=== PATIENT | male | born 1990 | race Hispanic/Latino ===

== ENCOUNTER 2019-04-01 02:02 | Emergency (ER) | payer OTHER ==
[2019-04-01] MEDS ORDERED: LIDOCAINE 5% TOPICAL PATCH TP ONE (02:49)
[2019-04-01] MEDS ORDERED: DIAZEPAM 5 MG TABLET ONE (02:50)
== END 2019-04-01 03:11 | disposition home or self-care (01) ==
LOC: EDH 02:02
DX: F41.1 Generalized anxiety disorder (principal); F43.21 Adjustment disorder with depressed mood; M54.6 Pain in thoracic spine; R51 Headache; M62.838 Other muscle spasm

== ENCOUNTER 2019-04-02 00:16 | Emergency (ER) | payer OTHER ==
[2019-04-02] MEDS ORDERED: HYDROXYZINE HCL 25 MG TABLET ONE (00:44)
== END 2019-04-02 01:01 | disposition home or self-care (01) ==
LOC: EDH 00:16
DX: F43.22 Adjustment disorder with anxiety (principal); R06.02 Shortness of breath; R13.10 Dysphagia, unspecified

== ENCOUNTER 2019-04-03 14:24 | Inpatient (IN) | payer OTHER ==
[2019-04-03] MEDS ORDERED: KETOROLAC TROMETHAMINE 30MG/ML ONE (15:13)
[2019-04-03] MEDS ORDERED: LORAZEPAM 2 MG/ML 1 ML VIAL ONE ×5 (15:15→23:43)
[2019-04-03 15:43] LABS: BASOPHILS % (AUTO) 0.8 % (0.0-5.0); EOSINOPHILS % (AUTO) 0.4 % (0.0-8.0); HEMATOCRIT 45.3 % (42-54); LYMPHOCYTES % (AUTO) 34.9 % (21.0-51.0); MEAN CORPUSCULAR HEMOGLOBIN 25.4 pg (27.0-33.0); MEAN CORPUSCULAR HGB CONC 32.5 g/dL (32.0-36.0); MEAN CORPUSCULAR VOLUME 78.1 fL (79-99); MONOCYTES % (AUTO) 10.3 % (3.0-13.0); NEUTROPHILS % (AUTO) 53.6 % (40.0-77.0); NUCLEATED RED BLOOD CELLS 0.1 % (0.0-0.19); PLATELET COUNT (AUTO) 350 K/uL (130-400); RED CELL DISTRIBUTION WIDTH 14.7 % (11.0-15.5); WHITE BLOOD COUNT (AUTO) 10.2 K/uL (4.8-10.8)
[2019-04-03 15:54] LABS: CREATININE 1.1 mg/dL (0.5-1.5); POTASSIUM 3.4 mmol/L (3.5-5.1)
[2019-04-03 15:56] LABS: INR 1.1 (0.85-1.15); PARTIAL THROMBOPLASTIN TIME 28.1 SEC (26.3-35.5); PROTHROMBIN TIME 11.5 SEC (9.6-11.6)
[2019-04-03 16:05] LABS: ALBUMIN 4.6 g/dL (3.5-5.0); BILIRUBIN,TOTAL 0.7 mg/dL (0.2-1.0); TOTAL PROTEIN, SERUM 8.6 g/dL (6.0-8.3); TROPONIN I 0.06 ng/mL (0.00-0.06)
[2019-04-03 17:02] LABS: APPEARANCE,URINE CLOUDY (CLEAR); BILIRUBIN,URINE MODERATE (NEGATIVE); COLOR,URINE YELLOW (YELLOW); GLUCOSE, URINE (UA) NEGATIVE (NEGATIVE); KETONES,URINE 40 mg/dL (NEGATIVE); LEUKOCYTE ESTERASE ,URINE NEGATIVE (NEGATIVE); NITRATE,URINE NEGATIVE (NEGATIVE); OCCULT BLOOD,URINE TRACE-LYSED (NEGATIVE); PROTEIN,URINE 30 mg/dL (NEGATIVE)
[2019-04-03] MEDS ORDERED: HALOPERIDOL LACTATE 5 MG/ML VIAL ONE ×2 (17:31→18:21)
[2019-04-03] MEDS ORDERED: LIDOCAINE HCL 2% 20ML ONE (17:42)
[2019-04-03 17:48] LABS: BACTERIA,URINE Rare /HPF (None Seen); RBC,URINE None Seen /HPF (0-1)
[2019-04-03 17:49] LABS: AMORPHOUS SEDIMENT,UR Few /LPF (None Seen); MUCUS,URINE Few LPF (None Seen); SQUAMOUS EPITHELIAL CELL,UR None Seen /HPF (0-2)
[2019-04-03 19:00] LABS: GLUCOSE, CSF 65 mg/dL (40-70); TOTAL PROTEIN, CSF 68 mg/dL (15-45)
[2019-04-03 19:17] LABS: APPEARANCE2,CSF CLEAR (CLEAR); COLOR2,CSF COLORLESS (COLORLESS); CSF 2ND TUBE NUMBER 4
[2019-04-03 19:37] LABS: APPEARANCE,CSF HAZY (CLEAR); COLOR,CSF PINK (COLORLESS); CSF TOTAL VOLUME 8.5 mL; CSF TUBE NUMBER 1; WHITE BLOOD CELL1,CSF 3 CMM (0-5)
[2019-04-03 19:38] LABS: RED BLOOD CELL1,CSF 5250 CMM (0-0)
[2019-04-03 21:14] LABS: AMPHET/METH SCREEN,URINE NEGATIVE (NEGATIVE); BARBITURATE SCREEN, URINE NEGATIVE (NEGATIVE); BENZODIAZEPINES SCREEN,URINE POSITIVE (NEGATIVE); CANNABINOID SCREEN,URINE NEGATIVE (NEGATIVE); COCAINE SCREEN,URINE NEGATIVE (NEGATIVE); OPIATE SCREEN,URINE NEGATIVE (NEGATIVE); PHENCYCLIDINE SCREEN,URINE NEGATIVE (NEGATIVE)
[2019-04-03] MEDS ORDERED: CEFTRIAXONE SODIUM 1 GM ONE (21:54)
[2019-04-03] MEDS: SODIUM CHLORIDE 0.9% 1000ML 1,000 ML IV SCH (22:07)
[2019-04-03] MEDS ORDERED: LORAZEPAM 2 MG/ML 1 ML VIAL IVP PRN (22:15)
[2019-04-03] MEDS ORDERED: POTASSIUM CHLORIDE 20MEQ/100ML 100 ML IV PRN (23:45)
[2019-04-03] MEDS ORDERED: LIDOCAINE HCL-MPF 1% 2ML VIAL IVP PRN (23:45)
[2019-04-03] MEDS ORDERED: POTASSIUM CHLORIDE 10% ELIXIR 20 MEQ/15 ML UDCUP PO PRN (23:45)
[2019-04-03] MEDS ORDERED: POTASSIUM CHLORIDE 20 MEQ ERTAB PO PRN (23:45)
[2019-04-04] MEDS ORDERED: OLANZAPINE 10MG/ML 1ML VIAL IM ONE (00:08)
[2019-04-04] MEDS ORDERED: OLANZAPINE 10MG/ML 1ML VIAL IM PRN (03:15)
[2019-04-04 04:00] VITALS: BP 112/56
[2019-04-04 08:00] VITALS: BP 137/74
[2019-04-04] MEDS: SODIUM CHLORIDE 0.9% 1000ML 1,000 ML IV SCH ×2 (08:07→18:07)
[2019-04-04] MEDS: FAMOTIDINE 20MG TAB 20 MG TAB PO SCH ×2 (08:24→21:00)
[2019-04-04 08:48] LABS: HEMATOCRIT 39.6 % (42-54); MEAN CORPUSCULAR HEMOGLOBIN 26.6 pg (27.0-33.0); MEAN CORPUSCULAR HGB CONC 33.8 g/dL (32.0-36.0); MEAN CORPUSCULAR VOLUME 78.7 fL (79-99); NUCLEATED RED BLOOD CELLS 0.1 % (0.0-0.19); PLATELET COUNT (AUTO) 244 K/uL (130-400); RED BLOOD CELL COUNT(AUTO) 5.03 MIL/uL (4.50-6.20); RED CELL DISTRIBUTION WIDTH 14.5 % (11.0-15.5); WHITE BLOOD COUNT (AUTO) 7.6 K/uL (4.8-10.8)
[2019-04-04 09:05] LABS: ALBUMIN 3.7 g/dL (3.5-5.0); BILIRUBIN,TOTAL 0.7 mg/dL (0.2-1.0); CREATININE 1.1 mg/dL (0.5-1.5); POTASSIUM 3.5 mmol/L (3.5-5.1)
--- NOTE | 2019-04-04 11:25 | NUR ---
DCP CM met with pt discussed dc plans. Pt is independent prior to admission, lives at home with spouse. Denies any equipments/services. Pt feels safe to go back home, still works and drives, spouse able to assist with transportation and needs as necessary. DC plan to home once stable. CM to cont to follow up. Addendum: 04/04/19 at 1128 by MARIYA REYES LVN CM Amended: Links added.
[2019-04-04 12:00] VITALS: BP 141/79
[2019-04-04] MEDS: POTASSIUM CHLORIDE 20 MEQ in DEXTROSE 5%-WATER 1,000 ML IV SCH (14:40)
[2019-04-04 16:00] VITALS: BP 143/81
--- NOTE | 2019-04-04 19:30 | NUR ---
CONSULT DR. THORNE TO SEE AND EXAMEN PATIENT WITH ORDERS
[2019-04-04 20:00] VITALS: BP 122/63
[2019-04-04] MEDS ORDERED: CEFTRIAXONE SODIUM 1 GM IVP SCH (21:00)
[2019-04-05] VITALS: BP 122/63
[2019-04-05 04:00] VITALS: BP 124/66
[2019-04-05] MEDS: SODIUM CHLORIDE 0.9% 1000ML 1,000 ML IV SCH (04:07)
[2019-04-05] MEDS: POTASSIUM CHLORIDE 20 MEQ in DEXTROSE 5%-WATER 1,000 ML IV SCH (04:47)
--- NOTE | 2019-04-05 05:00 | NUR ---
US US ABDOMEN DONE ORDERED, TOLERATED WELL
[2019-04-05 05:44] LABS: HEMATOCRIT 36.8 % (42-54); MEAN CORPUSCULAR HGB CONC 33.5 g/dL (32.0-36.0); MEAN CORPUSCULAR VOLUME 77.7 fL (79-99); PLATELET COUNT (AUTO) 273 K/uL (130-400); RED BLOOD CELL COUNT(AUTO) 4.74 MIL/uL (4.50-6.20); RED CELL DISTRIBUTION WIDTH 14.6 % (11.0-15.5); WHITE BLOOD COUNT (AUTO) 7.2 K/uL (4.8-10.8)
[2019-04-05 06:04] LABS: ALBUMIN 3.5 g/dL (3.5-5.0); BILIRUBIN,TOTAL 0.5 mg/dL (0.2-1.0); CREATININE 0.8 mg/dL (0.5-1.5); MAGNESIUM 1.8 mg/dL (1.80-2.40); PHOSPHORUS 3.2 mg/dL (2.5-4.9); POTASSIUM 3.1 mmol/L (3.5-5.1); T4 (THYROXINE) 7.2 ug/dL (4.7-13.3); TOTAL PROTEIN, SERUM 6.8 g/dL (6.0-8.3)
[2019-04-05 06:24] LABS: THYROID STIMULATING HORMONE 2.1 uIU/mL (0.36-3.74)
[2019-04-05 07:00] VITALS: BP 128/78
[2019-04-05 11:00] VITALS: BP 122/75
[2019-04-05] MEDS ORDERED: POTASSIUM CHLORIDE 20 MEQ ERTAB PO SCH (12:15)
[2019-04-05] MEDS: FAMOTIDINE 20MG TAB 20 MG TAB PO SCH (13:26)
[2019-04-05 16:00] VITALS: BP 124/70
--- NOTE | 2019-04-05 17:37 | NUR ---
OMAIRA GONZALEZ PT [facility] FROM [facility] LOC[facility], WILL FOLLOW UP WITH PATIENT ONCE AT HOME. MD INFORMED PATIENT DC HOME TO THE CARE OF SPOUSE AND FAMILY IV CATHETERS REMOVED, INTACT. DC INSTRUCTION PROVIDED USING TEACH BACK
== END 2019-04-05 18:19 | disposition home or self-care (01) | DRG 641 ==
LOC: EEVIPCON 14:24 → EDH 14:24 → OBSVTOIN 22:07 → EDHIP 22:07 → 4BH 23:10
PROVIDERS: ADMIT Internal Medicine; ATTEND Internal Medicine
PROC: 009U3ZX Drainage of Spinal Canal, Percutaneous Approach, Diagnostic (ICD-10-PCS; principal; 2019-04-03)
DX: E87.0 Hyperosmolality and hypernatremia (principal); F41.0 Panic disorder [episodic paroxysmal anxiety]; E87.6 Hypokalemia; E86.0 Dehydration; R74.0 Nonspecific elevation of levels of transaminase and lactic acid dehydrogenase [LDH]
CPT/HCPCS: 36415; 70450; 71045; 76705; 80053; 80305; 81001; 82140; 82550; 82945; 83605; 83735; 83874; 84100; 84132; 84157; 84436; 84443; 84480; 84484; 85025; 85027; 85610; 85651; 85730; 86140; 86694; 86735; 86765; 86787; 86788; 87040; 87071; 87088; 87147; 87205; 87252; 87804; 89051; 93005; 99291; A4218; G0378; J0696; J1630; J1885; J2060; J3480; J3490; J7070

== ENCOUNTER → 2019-04-09 | Outpatient (CLI) | payer OTHER ==
[2019-04-09 11:14] LABS: ALBUMIN 4.4 g/dL (3.5-5.0); BILIRUBIN,DIRECT 0.1 mg/dL (0.0-0.3); BILIRUBIN,TOTAL 0.4 mg/dL (0.2-1.0); POTASSIUM 4.1 mmol/L (3.5-5.1); TOTAL PROTEIN, SERUM 8.3 g/dL (6.0-8.3)
[2019-04-10 07:19] LABS: HEPATITIS A ANTIBODY IGM Negative (Negative); HEPATITIS B CORE IGM Negative (Negative); HEPATITIS Bs ANTIGEN SCREEN P Negative (Negative)
== END | disposition home or self-care (01) ==
LOC: LAB 10:01
PROVIDERS: ATTEND Physician Assistant
DX: E78.5 Hyperlipidemia, unspecified (principal); I10 Essential (primary) hypertension; R94.5 Abnormal results of liver function studies
CPT/HCPCS: 36415; 80074; 80076; 84132; 84295

== ENCOUNTER 2019-08-08 06:06 | Day surgery (SDC) | payer OTHER ==
[2019-08-07 15:20] VITALS: BP 128/66
[2019-08-07 17:45] LABS: BASOPHILS % (AUTO) 0.9 % (0.0-5.0); EOSINOPHILS % (AUTO) 2.8 % (0.0-8.0); HEMATOCRIT 46.3 % (42-54); LYMPHOCYTES % (AUTO) 41.6 % (21.0-51.0); MEAN CORPUSCULAR HEMOGLOBIN 26.6 pg (27.0-33.0); MEAN CORPUSCULAR HGB CONC 33.5 g/dL (32.0-36.0); MEAN CORPUSCULAR VOLUME 79.4 fL (79-99); MONOCYTES % (AUTO) 6.2 % (3.0-13.0); NEUTROPHILS % (AUTO) 48.5 % (40.0-77.0); PLATELET COUNT (AUTO) 320 K/uL (130-400); RED BLOOD CELL COUNT(AUTO) 5.83 MIL/uL (4.50-6.20); RED CELL DISTRIBUTION WIDTH 14.6 % (11.0-15.5); WHITE BLOOD COUNT (AUTO) 9.1 K/uL (4.8-10.8)
[2019-08-07 17:59] LABS: POTASSIUM 4.4 mmol/L (3.5-5.1)
[~2019-08-08] VITALS: Ht 180.3 cm; Wt 97.3 kg
[2019-08-08] VITALS (17 sets, daily range): BP systolic 100–129; BP diastolic 52–75
[2019-08-08] MEDS ORDERED: CEFAZOLIN SODIUM 1 GM VIAL ONE (06:51)
[2019-08-08] MEDS ORDERED: LACTATED RINGERS 1000ML 1,000 ML IV ONE (06:51)
[2019-08-08] MEDS ORDERED: MIDAZOLAM HCL 1 MG/ML 2ML VIAL ONE (07:07)
[2019-08-08] MEDS ORDERED: LIDOCAINE PF 2% 5ML ABBOJECT ONE (07:07)
[2019-08-08] MEDS ORDERED: FENTANYL CITRATE PF 50 MCG/1 ML 2ML VIAL ONE ×2 (07:07→10:23)
[2019-08-08] MEDS ORDERED: PROPOFOL 10 MG/ML 20ML VIAL IV ONE (07:07)
[2019-08-08] MEDS ORDERED: ONDANSETRON HCL 4 MG/2 ML VIAL ONE (07:08)
[2019-08-08] MEDS ORDERED: DEXAMETHASONE SOD PHOSPHATE 10MG/ML 1ML VIAL ONE (07:08)
[2019-08-08] MEDS: CEFAZOLIN SODIUM 1 GM VIAL IVP ONE ×2 (07:14→09:55)
[2019-08-08] MEDS ORDERED: LACTATED RINGERS 1000ML 1,000 ML IV SCH (08:30)
[2019-08-08] MEDS ORDERED: GLYCOPYRROLATE 1 MG/5 ML SYRINGE ONE ×2 (09:54→12:06)
[2019-08-08] MEDS ORDERED: ROCURONIUM 10MG/1ML SYR 10 MG/ML ML ONE (09:54)
[2019-08-08] MEDS ORDERED: ATROPINE SULFATE 0.1 MG/ML 10 ML SYG IVP ONE (10:12)
[2019-08-08] MEDS ORDERED: MEPERIDINE-PF 25 MG/ML SYG ONE ×2 (10:54→12:06)
[2019-08-08] MEDS ORDERED: NEOSTIGMINE 5MG/5ML SYR IV ONE (11:03)
[2019-08-08] MEDS ORDERED: KETOROLAC TROMETHAMINE 30MG/ML ONE (11:53)
--- NOTE | 2019-08-08 12:30 | NUR ---
PATIENT ARRIVED PATIENT BROUGHT TO DAY PATIENT ROOM 2 BY TAO DOWNING. PATIENT AAOX3, RESPIRATIONS UNLABORED, VITAL SIGNS STABLE, DENIES ANY PAIN. DRESSING (JOSUE WRAP) TO RIGHT HAND WITH SPLINT IN PLACE TO RIGHT 5TH DIGIT. CAPILLARY REFILL <3SECS TO RIGHT FINGER TIPS. ABLE TO MOVE FINGERS TO RIGHT HAND AND DENIES ANY NUMBNESS TO RIGHT FINGERS. DRESSING TO RIGHT HAND IS DRY AND INTACT. SIDERAILS UP X2, BED IN LOWEST POSITION AND CALL PARKER IN REACH.
--- NOTE | 2019-08-08 13:15 | NUR ---
DISCHARGE INSTRUCTIONS DISCHARGE INSTRUCTIONS PROVIDED TO PATIENT'S SPOUSE. HANDOUTS PROVIDED AND SPOUSE INSTRUCTED TO CALL DR DEGROOT'S OFFICE FOR FOLLOW UP APPOINTMENT IN 10 DAYS. INSTRUCTED SPOUSE TO KEEP DRESSING DRY AND DO NOT REMOVE UNTIL SEEN BY DR DEGROOT IN OFFICE. INSTRUCTED TO REMOVED JOSUE WRAP IF IT GETS WET AND GO TO DR DEGROOT'S OFFICE FOR A NEW ONE. PATIENT'S SPOUSE VERBALIZED UNDERSTANDING. ALL QUESTIONS/CONCERNS ADDRESSED.
--- NOTE | 2019-08-08 13:25 | NUR ---
DISCHARGED PATIENT DISCHARGED FROM FACILITY VIA WHEELCHAIR BY NURSE (TAO CHAUDHRY). PATIENT TAKEN TO PRIVATE VEHICLE BEING DRIVEN BY SPOUSE.
== END 2019-08-08 13:25 | disposition home or self-care (01) ==
LOC: DAH 06:06
PROVIDERS: ATTEND Orthopaedic Surgery
DX: S62.616A Displaced fracture of proximal phalanx of right little finger, initial encounter for closed fracture (principal); F41.9 Anxiety disorder, unspecified; F32.9 Major depressive disorder, single episode, unspecified; Z80.3 Family history of malignant neoplasm of breast; Z83.3 Family history of diabetes mellitus; W19.XXXA Unspecified fall, initial encounter; Y93.89 Activity, other specified; Y92.89 Other specified places as the place of occurrence of the external cause; Y99.8 Other external cause status
CPT/HCPCS: 26735; 36415; 73130; 80048; 85025; A4215; A4221; A4222; A4223; A4606; A4649 ×2; A6223; A6260; A6446; C1713 ×2; J0461; J0690; J1100; J1885; J2001; J2175 ×2; J2250; J2405; J2704; J2710; J3010 ×2; J3490 ×2; J7120

== ENCOUNTER → 2020-03-31 | Outpatient (CLI) | payer OTHER ==
[2020-03-31 11:57] LABS: BASOPHILS % (AUTO) 0.9 % (0.0-5.0); EOSINOPHILS % (AUTO) 3.2 % (0.0-8.0); HEMATOCRIT 47.5 % (42-54); LYMPHOCYTES % (AUTO) 44.5 % (21.0-51.0); MEAN CORPUSCULAR HEMOGLOBIN 26.1 pg (27.0-33.0); MEAN CORPUSCULAR HGB CONC 32.2 g/dL (32.0-36.0); MEAN CORPUSCULAR VOLUME 81.1 fL (79-99); MONOCYTES % (AUTO) 6.8 % (3.0-13.0); NEUTROPHILS % (AUTO) 43.9 % (40.0-77.0); PLATELET COUNT (AUTO) 281 K/uL (130-400); RED BLOOD CELL COUNT(AUTO) 5.86 MIL/uL (4.50-6.20); RED CELL DISTRIBUTION WIDTH 13.6 % (11.0-15.5); WHITE BLOOD COUNT (AUTO) 7.5 K/uL (4.8-10.8)
[2020-03-31 12:51] LABS: ALBUMIN 4.5 g/dL (3.5-5.0); BILIRUBIN,DIRECT 0.1 mg/dL (0.0-0.3); BILIRUBIN,TOTAL 0.4 mg/dL (0.2-1.0); POTASSIUM 4.3 mmol/L (3.5-5.1); T4 (THYROXINE) 8.2 ug/dL (4.7-13.3); THYROID STIMULATING HORMONE 1.62 uIU/mL (0.36-3.74); TOTAL PROTEIN, SERUM 8.5 g/dL (6.0-8.3)
== END | disposition home or self-care (01) ==
LOC: LAB 10:57
PROVIDERS: ATTEND Psychiatry & Neurology Psychiatry
DX: F33.1 Major depressive disorder, recurrent, moderate (principal); F41.1 Generalized anxiety disorder; F06.31 Mood disorder due to known physiological condition with depressive features
CPT/HCPCS: 36415; 80053; 80076; 82306; 82607; 82746; 83540; 84436; 84443; 84481; 85025

== ENCOUNTER → 2021-08-25 | Outpatient (CLI) | payer OTHER ==
[2021-08-25 11:18] LABS: BASOPHILS % (AUTO) 1.2 % (0.0-5.0); EOSINOPHILS % (AUTO) 2.7 % (0.0-8.0); HEMATOCRIT 47.1 % (42-54); LYMPHOCYTES % (AUTO) 51.9 % (21.0-51.0); MEAN CORPUSCULAR HEMOGLOBIN 26.2 pg (27.0-33.0); MEAN CORPUSCULAR HGB CONC 31.6 g/dL (32.0-36.0); MEAN CORPUSCULAR VOLUME 82.8 fL (79-99); MONOCYTES % (AUTO) 6.5 % (3.0-13.0); NEUTROPHILS % (AUTO) 37.3 % (40.0-77.0); PLATELET COUNT (AUTO) 267 K/uL (130-400); RED BLOOD CELL COUNT(AUTO) 5.69 MIL/uL (4.50-6.20); RED CELL DISTRIBUTION WIDTH 13.7 % (11.0-15.5); WHITE BLOOD COUNT (AUTO) 6.9 K/uL (4.8-10.8)
[2021-08-25 12:26] LABS: ALBUMIN 4.3 g/dL (3.5-5.0); BILIRUBIN,TOTAL 0.4 mg/dL (0.2-1.0); CREATININE 0.8 mg/dL (0.5-1.5); POTASSIUM 4.7 mmol/L (3.5-5.1); THYROID STIMULATING HORMONE 1.47 uIU/mL (0.36-3.74); TOTAL PROTEIN, SERUM 8.1 g/dL (6.0-8.3)
== END | disposition home or self-care (01) ==
LOC: LAB 10:06
PROVIDERS: ATTEND Family Medicine
DX: F41.1 Generalized anxiety disorder (principal)
CPT/HCPCS: 36415; 80053; 80061; 84439; 84443; 85025

== ENCOUNTER 2022-01-06 10:26 | Emergency (ER) | payer OTHER ==
[~2022-01-06] VITALS: Ht 180.3 cm; Wt 106.1 kg
[2022-01-06 10:52] LABS: BILIRUBIN,URINE Negative (NEGATIVE); COLOR,URINE Yellow (YELLOW); GLUCOSE, URINE (UA) Negative (NEGATIVE); KETONES,URINE Trace mg/dL (NEGATIVE); LEUKOCYTE ESTERASE ,URINE Negative (NEGATIVE); NITRATE,URINE Negative (NEGATIVE); OCCULT BLOOD,URINE Negative (NEGATIVE); PROTEIN,URINE Trace mg/dL (NEGATIVE)
[2022-01-06 10:54] LABS: BASOPHILS % (AUTO) 0.5 % (0.0-5.0); EOSINOPHILS % (AUTO) 0.2 % (0.0-8.0); HEMATOCRIT 47.5 % (42-54); MEAN CORPUSCULAR HEMOGLOBIN 25.9 pg (27.0-33.0); MEAN CORPUSCULAR HGB CONC 32.2 g/dL (32.0-36.0); MEAN CORPUSCULAR VOLUME 80.4 fL (79-99); MONOCYTES % (AUTO) 7.1 % (3.0-13.0); NEUTROPHILS % (AUTO) 81.9 % (40.0-77.0); PLATELET COUNT (AUTO) 233 K/uL (130-400); RED BLOOD CELL COUNT(AUTO) 5.91 MIL/uL (4.50-6.20); RED CELL DISTRIBUTION WIDTH 12.9 % (11.0-15.5); WHITE BLOOD COUNT (AUTO) 5.9 K/uL (4.8-10.8)
[2022-01-06 10:54] LABS: APPEARANCE,URINE CLEAR (CLEAR)
[2022-01-06 10:58] LABS: BACTERIA,URINE Rare /HPF (None Seen); MUCUS,URINE Few LPF (None Seen); RBC,URINE 0-1 /HPF (0-1); SQUAMOUS EPITHELIAL CELL,UR Rare /HPF (0-2); WBC,URINE 0-1 /HPF (0-1)
[2022-01-06 11:04] LABS: CARBON DIOXIDE 28 mmol/L (21-32); CHLORIDE 99 mmol/L (101-111); GLOMERULAR FILTR. RATE CALC 91 mL/min (>60); GLUCOSE,RANDOM 96 mg/dL (70-105); POTASSIUM 3.3 mmol/L (3.5-5.1); SODIUM SERUM 137 mmol/L (136-145); UREA NITROGEN, BLOOD 17 mg/dL (7-18)
[2022-01-06 11:08] LABS: ALANINE AMINOTRANSFERASE 56 U/L (12-78); ALBUMIN 4.5 g/dL (3.5-5.0); AMYLASE 27 U/L (25-115); ASPARTATE AMINOTRANSFERASE 22 U/L (10-37); BILIRUBIN,TOTAL 0.7 mg/dL (0.2-1.0); CREATINE KINASE, TOTAL 56 U/L (21-232); TOTAL PROTEIN, SERUM 8.5 g/dL (6.0-8.3)
[2022-01-06 11:09] LABS: LIPASE < 50 U/L (114-286)
[2022-01-06] MEDS ORDERED: IOHEXOL 350 MG/ML 100ML INFUS..BTL IV ONE (11:43)
[2022-01-06] MEDS ORDERED: FAMO20TA8 PO (12:57)
[2022-01-06] MEDS ORDERED: MAG/ALUM/SIMETH 30 ML UDCUP PO ONE (13:00)
[2022-01-06] MEDS ORDERED: DICYCLOMINE HCL 10 MG/5 ML ML PO ONE ×2 (13:00→13:04)
[2022-01-06] MEDS ORDERED: LIDOCAINE HCL 2% VISCOUS 15 ML UDCUP PO ONE (13:00)
[2022-01-06] MEDS ORDERED: LIDOCAINE HCL 2% VISCOUS 15 ML UDCUP ONE (13:04)
[2022-01-06] MEDS ORDERED: MAG/ALUM/SIMETH 30 ML UDCUP ONE (13:04)
[2022-01-06] MEDS ORDERED: POTASSIUM BICARB/CIT AC 25 MEQ TABLET.EFF ONE (13:04)
[2022-01-06 13:11] VITALS: BP 127/75
[2022-01-06] MEDS ORDERED: POTASSIUM BICARB/CIT AC 25 MEQ TABLET.EFF PO ONE (13:30)
[2022-01-06] MEDS ORDERED: ONDA4TAB10 PO (23:58)
== END 2022-01-06 13:53 | disposition home or self-care (01) ==
LOC: EDH 10:26
DX: K80.50 Calculus of bile duct without cholangitis or cholecystitis without obstruction (principal); K21.9 Gastro-esophageal reflux disease without esophagitis; R11.2 Nausea with vomiting, unspecified
CPT/HCPCS: 36415; 74177; 80053; 81001; 82150; 82550; 83690; 85025; 99285; Q9967

== ENCOUNTER 2022-01-06 20:32 | Emergency (ER) | payer OTHER ==
[~2022-01-06] VITALS: Ht 180.3 cm; Wt 106.1 kg
[~2022-01-06 20:32] MED LIST: FAMO20TA8 PO
[2022-01-06 20:45] VITALS: BP 125/74
[2022-01-06 21:50] LABS: BASOPHILS % (AUTO) 0.2 % (0.0-5.0); HEMATOCRIT 45.5 % (42-54); LYMPHOCYTES % (AUTO) 17.5 % (21.0-51.0); MEAN CORPUSCULAR HEMOGLOBIN 25.2 pg (27.0-33.0); MEAN CORPUSCULAR HGB CONC 31.9 g/dL (32.0-36.0); NEUTROPHILS % (AUTO) 70.1 % (40.0-77.0); PLATELET COUNT (AUTO) 230 K/uL (130-400); RED BLOOD CELL COUNT(AUTO) 5.76 MIL/uL (4.50-6.20); RED CELL DISTRIBUTION WIDTH 13.2 % (11.0-15.5); WHITE BLOOD COUNT (AUTO) 4.6 K/uL (4.8-10.8)
[2022-01-06 22:00] LABS: CREATININE 0.9 mg/dL (0.5-1.5); POTASSIUM 3.6 mmol/L (3.5-5.1)
[2022-01-06 22:12] LABS: AMPHET/METH SCREEN,URINE NEGATIVE (NEGATIVE); BARBITURATE SCREEN, URINE NEGATIVE (NEGATIVE); BENZODIAZEPINES SCREEN,URINE NEGATIVE (NEGATIVE); CANNABINOID SCREEN,URINE NEGATIVE (NEGATIVE); COCAINE SCREEN,URINE NEGATIVE (NEGATIVE); OPIATE SCREEN,URINE NEGATIVE (NEGATIVE); PHENCYCLIDINE SCREEN,URINE NEGATIVE (NEGATIVE)
[2022-01-06] MEDS ORDERED: FAMOTIDINE 20MG VIAL IV ONE (22:30)
[2022-01-06] MEDS ORDERED: ONDANSETRON 4MG INJ IVP ONE (22:30)
[2022-01-06] MEDS ORDERED: KETOROLAC 15MG/ML VIAL (15MG/ML) IV ONE (22:30)
[2022-01-06] MEDS ORDERED: 0.9%NACL 1000ML 1,000 ML IV ONE (22:30)
[2022-01-06] MEDS ORDERED: ONDA4TAB10 PO (23:58)
== END 2022-01-07 00:16 | disposition home or self-care (01) ==
LOC: EDH 20:32
DX: K80.50 Calculus of bile duct without cholangitis or cholecystitis without obstruction (principal); R11.2 Nausea with vomiting, unspecified; R19.7 Diarrhea, unspecified; Z79.899 Other long term (current) drug therapy
CPT/HCPCS: 36415; 80048; 80305; 85025; 96361; 96374; 96375; 99284; J1885; J2405; J3490; J7030

== ENCOUNTER → 2022-03-31 | Outpatient (CLI) | payer OTHER ==
[~2022-03-31] MED LIST changes: +ONDA4TAB10 PO
== END | disposition home or self-care (01) ==
LOC: LAB 08:36
PROVIDERS: ATTEND Family Medicine
DX: Z20.9 Contact with and (suspected) exposure to unspecified communicable disease (principal)
CPT/HCPCS: 36415; 83013

== ENCOUNTER → 2022-06-22 | Outpatient (CLI) | payer OTHER | END | disposition home or self-care (01) | LOC: LAB 08:41 | PROVIDERS: ATTEND Psychiatry & Neurology Psychiatry | DX: K29.70 Gastritis, unspecified, without bleeding (principal); Z86.19 Personal history of other infectious and parasitic diseases | CPT/HCPCS: 36415; 83013 ==

== ENCOUNTER 2022-10-09 13:43 | Emergency (ER) | payer OTHER ==
[~2022-10-09] VITALS: Ht 180.3 cm; Wt 114.8 kg
[2022-10-09 14:09] LABS: EOSINOPHILS % (AUTO) 2.2 % (0.0-8.0); HEMATOCRIT 45.9 % (42-54); MEAN CORPUSCULAR HEMOGLOBIN 25.8 pg (27.0-33.0); MEAN CORPUSCULAR HGB CONC 32.9 g/dL (32.0-36.0); MEAN CORPUSCULAR VOLUME 78.5 fL (79-99); MONOCYTES % (AUTO) 8.4 % (3.0-13.0); NEUTROPHILS % (AUTO) 37.1 % (40.0-77.0); PLATELET COUNT (AUTO) 271 K/uL (130-400); RED BLOOD CELL COUNT(AUTO) 5.85 MIL/uL (4.50-6.20); RED CELL DISTRIBUTION WIDTH 13.5 % (11.0-15.5); WHITE BLOOD COUNT (AUTO) 9.4 K/uL (4.8-10.8)
[2022-10-09 14:17] LABS: CREATININE 1.3 mg/dL (0.5-1.5); POTASSIUM 3.3 mmol/L (3.5-5.1)
[2022-10-09 14:21] LABS: ALBUMIN 4.4 g/dL (3.5-5.0); TOTAL PROTEIN, SERUM 8.3 g/dL (6.0-8.3)
[2022-10-09 15:21] LABS: APPEARANCE,URINE CLEAR (CLEAR); BILIRUBIN,URINE NEGATIVE (NEGATIVE); COLOR,URINE LIGHT-YELLOW (YELLOW); GLUCOSE, URINE (UA) NEGATIVE (NEGATIVE); KETONES,URINE NEGATIVE (NEGATIVE); LEUKOCYTE ESTERASE ,URINE NEGATIVE Leu/uL (NEGATIVE); NITRATE,URINE NEGATIVE (NEGATIVE); OCCULT BLOOD,URINE NEGATIVE (NEGATIVE); PH,URINE 6.5 (5.0-8.0); PROTEIN,URINE NEGATIVE (NEGATIVE); UROBILINOGEN,URINE 0.2 mg/dL (0.2-1.0)
[2022-10-09 15:36] VITALS: BP 128/79
[2022-10-09 15:51] LABS: MUCUS,URINE RARE LPF (None Seen); RBC,URINE 0-1 /HPF (0-1); WBC,URINE 0-1 /HPF (0-1)
[2022-10-09] MEDS ORDERED: KCL 20 MEQ ERTAB PO ONE (16:00)
[2022-10-09] MEDS ORDERED: IBUP-1493 PO (16:07)
[2022-10-09] MEDS ORDERED: OMEP40CA21 PO (16:07)
== END 2022-10-09 16:26 | disposition home or self-care (01) ==
LOC: EDH 13:43
DX: K80.20 Calculus of gallbladder without cholecystitis without obstruction (principal)
CPT/HCPCS: 36415; 76705; 80053; 81001; 83690; 85025; 93005

== ENCOUNTER 2023-02-17 09:09 | Emergency (ER) | payer OTHER ==
[~2023-02-17] VITALS: Ht 180.3 cm; Wt 113.4 kg
[~2023-02-17 09:09] MED LIST changes: +IBUP-1493 PO; +OMEP40CA21 PO
[2023-02-17 09:10] VITALS: BP 133/72
[2023-02-17] MEDS ORDERED: PRED5TAB PO (09:25)
[2023-02-17] MEDS ORDERED: LORA10TA7 PO (09:25)
== END 2023-02-17 09:29 | disposition home or self-care (01) ==
LOC: EDH 09:09
DX: L25.9 Unspecified contact dermatitis, unspecified cause (principal); Z79.1 Long term (current) use of non-steroidal anti-inflammatories (NSAID); Z79.899 Other long term (current) drug therapy

== ENCOUNTER 2023-06-27 09:45 | Inpatient (IN) | payer OTHER ==
[~2023-06-27] VITALS: Ht 180.3 cm; Wt 97.5 kg
[~2023-06-27 09:45] MED LIST changes: +LORA10TA7 PO; +ONDA-104 PO; +PRED5TAB PO
[2023-06-27] MEDS ORDERED: PANTOPRAZOLE 40 MG/VIAL IVP ONE (12:00)
[2023-06-27] MEDS ORDERED: ONDANSETRON 4MG INJ IVP ONE (12:00)
[2023-06-27] MEDS ORDERED: LACTATED RINGERS 1000ML IV SCH (12:00)
[2023-06-27 12:45] LABS: POTASSIUM 3.8 mmol/L (3.5-5.1)
[2023-06-27 12:46] LABS: ALBUMIN 4.3 g/dL (3.5-5.0); BILIRUBIN,TOTAL 0.6 mg/dL (0.2-1.0); TOTAL PROTEIN, SERUM 7.9 g/dL (6.0-8.3)
[2023-06-27 12:57] LABS: BASOPHILS # (AUTO) 0.06 K/uL (0.00-0.20); EOSINOPHILS # (AUTO) 0.13 K/uL (0.00-0.70); EOSINOPHILS % (AUTO) 2.2 % (0.0-8.0); IMMATURE GRANULOCYTE ABSOLUTE 0.01 K/uL (0-1); LYMPHOCYTES # (AUTO) 2.8 K/uL (1.0-4.8); LYMPHOCYTES % (AUTO) 47.9 % (21.0-51.0); MEAN CORPUSCULAR HEMOGLOBIN 26.3 pg (27.0-33.0); MEAN CORPUSCULAR HGB CONC 32.5 g/dL (32.0-36.0); MONOCYTES # (AUTO) 0.4 K/uL (0.1-1.0); MONOCYTES % (AUTO) 6.6 % (3.0-13.0); NEUTROPHILS # (AUTO) 2.4 K/uL (1.8-7.7); NEUTROPHILS % (AUTO) 42.1 % (40.0-77.0); PLATELET COUNT (AUTO) 266 K/uL (130-400); RED BLOOD CELL COUNT(AUTO) 5.43 MIL/uL (4.50-6.20); RED CELL DISTRIBUTION WIDTH 13.6 % (11.0-15.5); WHITE BLOOD COUNT (AUTO) 5.8 K/uL (4.8-10.8)
[2023-06-27] MEDS ORDERED: MORPHINE 4 MG SYG IVP ONE (15:00)
[2023-06-27] MEDS ORDERED: GUAIFENESIN-DM 200/20 MG 10 ML PO PRN (18:00)
[2023-06-27] MEDS ORDERED: POTASSIUM CHLORIDE 20MEQ/100ML 100 ML IV PRN (18:00)
[2023-06-27] MEDS ORDERED: MAGNESIUM 2GM PREMIX 50ML 50 ML IV PRN (18:00)
[2023-06-27] MEDS ORDERED: DiphenhydrAMINE HCL 50 MG/ML VIAL IV PRN (18:00)
[2023-06-27] MEDS ORDERED: HYDROCODONE/ACETAMINOPHEN 5/325 MG TAB PO PRN (18:00)
[2023-06-27] MEDS ORDERED: NITROGLYCERIN 0.4 MG SL TAB SL PRN (18:00)
[2023-06-27] MEDS ORDERED: DIPHENHYDRAMINE HCL 25 MG CAPSULE PO PRN (18:00)
[2023-06-27] MEDS ORDERED: KCL 20 MEQ ERTAB PO PRN (18:00)
[2023-06-27] MEDS ORDERED: ACETAMINOPHEN 325 MG TAB PO PRN ×2 (18:00)
[2023-06-27] MEDS ORDERED: HYDROMORPHONE 1 MG INJ IV PRN (18:00)
[2023-06-27] MEDS ORDERED: POTASSIUM CHLORIDE 10% ELIXIR 20 MEQ/15 ML UDCUP PO PRN (18:00)
[2023-06-27] MEDS ORDERED: ONDANSETRON 4MG INJ IV PRN (18:00)
[2023-06-27] MEDS ORDERED: LACTULOSE 20 GM/30 ML UDCUP PO PRN (18:00)
[2023-06-27] MEDS: LACTATED RINGERS 1000ML 1,000 ML IV SCH (18:30)
[2023-06-27] MEDS ORDERED: FAMOTIDINE 20MG VIAL IV SCH (21:00)
[2023-06-27 21:03] LABS: SARS-CoV-2, RNA, NAAT NEGATIVE SARS CoV-2 (NEGATIVE)
[2023-06-27] MEDS: FAMOTIDINE 20MG TAB PO SCH (22:36)
[2023-06-27] MEDS: ZOSYN 3.375GM+NS 50ML 50 ML IVPB SCH (22:36)
[2023-06-27 23:45] VITALS: BP 130/60; PULSE 51; RESP 20; O2SAT 96
[2023-06-28] VITALS (7 sets, daily range): BP systolic 95–128; BP diastolic 50–62; PULSE 39–56; RESP 16–18; O2SAT 98–99
[2023-06-28] MEDS: LACTATED RINGERS 1000ML 1,000 ML IV SCH ×3 (00:58→17:24)
[2023-06-28] MEDS: ZOSYN 3.375GM+NS 50ML 50 ML IVPB SCH ×3 (04:12→19:14)
[2023-06-28 05:14] LABS: BASOPHILS # (AUTO) 0.06 K/uL (0.00-0.20); BASOPHILS % (AUTO) 0.9 % (0.0-5.0); EOSINOPHILS # (AUTO) 0.13 K/uL (0.00-0.70); EOSINOPHILS % (AUTO) 1.9 % (0.0-8.0); HEMATOCRIT 40.1 % (42-54); IMMATURE GRANULOCYTE ABSOLUTE 0.02 K/uL (0-1); LYMPHOCYTES # (AUTO) 2.7 K/uL (1.0-4.8); LYMPHOCYTES % (AUTO) 40.5 % (21.0-51.0); MEAN CORPUSCULAR HEMOGLOBIN 26.2 pg (27.0-33.0); MEAN CORPUSCULAR HGB CONC 32.2 g/dL (32.0-36.0); MEAN CORPUSCULAR VOLUME 81.5 fL (79-99); MONOCYTES # (AUTO) 0.6 K/uL (0.1-1.0); MONOCYTES % (AUTO) 9.1 % (3.0-13.0); NEUTROPHILS # (AUTO) 3.2 K/uL (1.8-7.7); NEUTROPHILS % (AUTO) 47.3 % (40.0-77.0); PLATELET COUNT (AUTO) 214 K/uL (130-400); RED BLOOD CELL COUNT(AUTO) 4.92 MIL/uL (4.50-6.20); RED CELL DISTRIBUTION WIDTH 13.7 % (11.0-15.5); WHITE BLOOD COUNT (AUTO) 6.7 K/uL (4.8-10.8)
[2023-06-28 05:31] LABS: ALBUMIN 3.5 g/dL (3.5-5.0); BILIRUBIN,TOTAL 1.3 mg/dL (0.2-1.0); CREATININE 1.2 mg/dL (0.5-1.5); PHOSPHORUS 3.8 mg/dL (2.5-4.9); POTASSIUM 3.7 mmol/L (3.5-5.1); TOTAL PROTEIN, SERUM 6.5 g/dL (6.0-8.3)
[2023-06-28 05:48] LABS: MAGNESIUM 1.9 mg/dL (1.80-2.40)
[2023-06-28] MEDS: ENOXAPARIN SODIUM 40 MG/0.4 ML SYRINGE SQ SCH (07:57)
[2023-06-28] MEDS: FAMOTIDINE 20MG TAB PO SCH ×2 (07:57→19:12)
[2023-06-29] VITALS (8 sets, daily range): BP systolic 100–128; BP diastolic 52–62; PULSE 46–67; RESP 17–20; O2SAT 96–99
[2023-06-29] MEDS: LACTATED RINGERS 1000ML 1,000 ML IV SCH ×3 (00:19→16:14)
[2023-06-29 04:02] LABS: BASOPHILS # (AUTO) 0.06 K/uL (0.00-0.20); BASOPHILS % (AUTO) 0.9 % (0.0-5.0); EOSINOPHILS # (AUTO) 0.16 K/uL (0.00-0.70); EOSINOPHILS % (AUTO) 2.4 % (0.0-8.0); HEMATOCRIT 38.9 % (42-54); IMMATURE GRANULOCYTE ABSOLUTE 0.01 K/uL (0-1); LYMPHOCYTES # (AUTO) 3.4 K/uL (1.0-4.8); LYMPHOCYTES % (AUTO) 49.3 % (21.0-51.0); MEAN CORPUSCULAR HEMOGLOBIN 26.3 pg (27.0-33.0); MEAN CORPUSCULAR HGB CONC 32.9 g/dL (32.0-36.0); MONOCYTES # (AUTO) 0.5 K/uL (0.1-1.0); MONOCYTES % (AUTO) 6.8 % (3.0-13.0); NEUTROPHILS # (AUTO) 2.8 K/uL (1.8-7.7); NEUTROPHILS % (AUTO) 40.5 % (40.0-77.0); PLATELET COUNT (AUTO) 242 K/uL (130-400); RED BLOOD CELL COUNT(AUTO) 4.86 MIL/uL (4.50-6.20); RED CELL DISTRIBUTION WIDTH 13.6 % (11.0-15.5); WHITE BLOOD COUNT (AUTO) 6.8 K/uL (4.8-10.8)
[2023-06-29 04:16] LABS: ALBUMIN 3.5 g/dL (3.5-5.0); BILIRUBIN,TOTAL 0.8 mg/dL (0.2-1.0); TOTAL PROTEIN, SERUM 6.6 g/dL (6.0-8.3)
[2023-06-29] MEDS: ZOSYN 3.375GM+NS 50ML 50 ML IVPB SCH ×3 (04:24→21:14)
[2023-06-29] MEDS: ENOXAPARIN SODIUM 40 MG/0.4 ML SYRINGE SQ SCH (09:00)
[2023-06-29] MEDS: FAMOTIDINE 20MG TAB PO SCH ×2 (09:00→21:14)
[2023-06-30] VITALS (14 sets, daily range): BP systolic 94–135; BP diastolic 47–79; PULSE 41–65; RESP 16–20; O2SAT 96–99
[2023-06-30 05:26] LABS: BASOPHILS # (AUTO) 0.06 K/uL (0.00-0.20); BASOPHILS % (AUTO) 0.9 % (0.0-5.0); EOSINOPHILS # (AUTO) 0.18 K/uL (0.00-0.70); EOSINOPHILS % (AUTO) 2.7 % (0.0-8.0); HEMATOCRIT 38.8 % (42-54); IMMATURE GRANULOCYTE ABSOLUTE 0.01 K/uL (0-1); LYMPHOCYTES # (AUTO) 3.1 K/uL (1.0-4.8); LYMPHOCYTES % (AUTO) 46.8 % (21.0-51.0); MEAN CORPUSCULAR HEMOGLOBIN 26.3 pg (27.0-33.0); MEAN CORPUSCULAR HGB CONC 32.5 g/dL (32.0-36.0); MONOCYTES # (AUTO) 0.5 K/uL (0.1-1.0); MONOCYTES % (AUTO) 8.1 % (3.0-13.0); NEUTROPHILS # (AUTO) 2.7 K/uL (1.8-7.7); NEUTROPHILS % (AUTO) 41.3 % (40.0-77.0); PLATELET COUNT (AUTO) 227 K/uL (130-400); RED BLOOD CELL COUNT(AUTO) 4.79 MIL/uL (4.50-6.20); RED CELL DISTRIBUTION WIDTH 13.4 % (11.0-15.5); WHITE BLOOD COUNT (AUTO) 6.6 K/uL (4.8-10.8)
[2023-06-30] MEDS: ZOSYN 3.375GM+NS 50ML 50 ML IVPB SCH ×3 (05:26→20:57)
[2023-06-30 05:37] LABS: ALBUMIN 3.4 g/dL (3.5-5.0); BILIRUBIN,TOTAL 0.9 mg/dL (0.2-1.0); CREATININE 1.1 mg/dL (0.5-1.5); POTASSIUM 4.1 mmol/L (3.5-5.1); TOTAL PROTEIN, SERUM 6.5 g/dL (6.0-8.3)
[2023-06-30] MEDS: ENOXAPARIN SODIUM 40 MG/0.4 ML SYRINGE SQ SCH (08:39)
[2023-06-30] MEDS: FAMOTIDINE 20MG TAB PO SCH ×2 (08:39→20:57)
[2023-06-30] MEDS: LACTATED RINGERS 1000ML 1,000 ML IV SCH ×2 (08:40→17:00)
[2023-06-30] MEDS ORDERED: PHARMACY COMMUNICATION MISC SCH (09:00)
[2023-06-30 09:17] LABS: INR 1.06 (0.85-1.15); PROTHROMBIN TIME 12.2 SEC (9.6-11.6)
[2023-06-30 09:19] LABS: PARTIAL THROMBOPLASTIN TIME 30.7 SEC (26.3-35.5)
[2023-06-30] MEDS ORDERED: INDOMETHACIN 100 MG SUPP.RECT RC ONE (09:30)
[2023-06-30] MEDS ORDERED: IOHEXOL-350 50ML VIAL IV ONE (10:53)
[2023-06-30] MEDS ORDERED: ROCURONIUM 10MG/1ML SYR 10 MG/ML ML ONE (13:02)
[2023-06-30] MEDS ORDERED: PROPOFOL 10 MG/ML 20ML VIAL IV ONE ×2 (13:02→13:33)
[2023-06-30] MEDS ORDERED: SUCCINYLCHOLINE 200MG/10ML SYR ONE (13:02)
[2023-06-30] MEDS ORDERED: GLYCOPYRROLATE 1 MG/5 ML SYRINGE ONE (13:20)
[2023-06-30] MEDS: HYDROCODONE/ACETAMINOPHEN 5/325 MG TAB PO PRN (22:33)
[2023-07-01] VITALS (8 sets, daily range): BP systolic 98–126; BP diastolic 51–60; PULSE 40–77; RESP 16–18; O2SAT 96–98
[2023-07-01 03:42] LABS: HEMATOCRIT 38.2 % (42-54); MEAN CORPUSCULAR HEMOGLOBIN 26.2 pg (27.0-33.0); MEAN CORPUSCULAR HGB CONC 32.5 g/dL (32.0-36.0); MEAN CORPUSCULAR VOLUME 80.8 fL (79-99); RED BLOOD CELL COUNT(AUTO) 4.73 MIL/uL (4.50-6.20); RED CELL DISTRIBUTION WIDTH 13.4 % (11.0-15.5); WHITE BLOOD COUNT (AUTO) 7.3 K/uL (4.8-10.8)
[2023-07-01 04:07] LABS: ALBUMIN 3.4 g/dL (3.5-5.0); BILIRUBIN,TOTAL 1.9 mg/dL (0.2-1.0); POTASSIUM 4.1 mmol/L (3.5-5.1); TOTAL PROTEIN, SERUM 6.5 g/dL (6.0-8.3)
[2023-07-01] MEDS: LACTATED RINGERS 1000ML 1,000 ML IV SCH ×3 (06:42→14:25)
[2023-07-01] MEDS: ZOSYN 3.375GM+NS 50ML 50 ML IVPB SCH ×3 (07:25→19:50)
[2023-07-01] MEDS: ENOXAPARIN SODIUM 40 MG/0.4 ML SYRINGE SQ SCH (09:00)
[2023-07-01] MEDS: FAMOTIDINE 20MG TAB PO SCH ×2 (09:00→19:50)
[2023-07-01] MEDS: HYDROCODONE/ACETAMINOPHEN 5/325 MG TAB PO PRN (11:48)
[2023-07-01] MEDS: MAG/ALUM/SIMETH 30 ML UDCUP PO PRN (19:50)
[2023-07-02] VITALS (30 sets, daily range): BP systolic 110–139; BP diastolic 55–77; PULSE 46–82; RESP 14–20; O2SAT 96–99
[2023-07-02 04:08] LABS: ALBUMIN 3.4 g/dL (3.5-5.0); BILIRUBIN,TOTAL 3.9 mg/dL (0.2-1.0); POTASSIUM 3.9 mmol/L (3.5-5.1); TOTAL PROTEIN, SERUM 6.5 g/dL (6.0-8.3)
[2023-07-02] MEDS: ZOSYN 3.375GM+NS 50ML 50 ML IVPB SCH ×3 (04:48→20:48)
[2023-07-02] MEDS: LACTATED RINGERS 1000ML 1,000 ML IV SCH ×3 (04:49→20:49)
[2023-07-02] MEDS: FAMOTIDINE 20MG TAB PO SCH ×2 (07:50→19:07)
[2023-07-02] MEDS: ENOXAPARIN SODIUM 40 MG/0.4 ML SYRINGE SQ SCH (07:50)
[2023-07-02] MEDS ORDERED: BUPIVACAINE/PF 0.5% 30ML VIAL ONE (10:56)
[2023-07-02] MEDS ORDERED: INDOCYANINE GREEN 25 MG VIAL IJ ONE (11:08)
[2023-07-02] MEDS ORDERED: LIDOCAINE HCL 4% LTA SOL 4 ML VIAL ONE (12:26)
[2023-07-02] MEDS ORDERED: LIDOCAINE PF 100MG/5ML (2%) SYRINGE 5ML ONE (12:27)
[2023-07-02] MEDS ORDERED: FENTANYL CITRATE PF 50 MCG/1 ML 2ML VIAL ONE ×2 (12:27→13:07)
[2023-07-02] MEDS ORDERED: MIDAZOLAM HCL 1 MG/ML 2ML VIAL ONE (12:27)
[2023-07-02] MEDS ORDERED: PROPOFOL 10 MG/ML 20ML VIAL IV ONE (12:27)
[2023-07-02] MEDS ORDERED: ROCURONIUM 10MG/1ML SYR 10 MG/ML ML ONE (12:28)
[2023-07-02] MEDS ORDERED: DEXAMETHASONE SOD PHOSPHATE 4 MG/ML 1ML VIAL ONE (12:47)
[2023-07-02] MEDS ORDERED: ONDANSETRON 4MG INJ ONE (12:47)
[2023-07-02] MEDS ORDERED: BUPIVACAINE/PF 0.5% 30ML VIAL INJ ONE (12:48)
[2023-07-02] MEDS ORDERED: GLYCOPYRROLATE 1 MG/5 ML SYRINGE ONE (13:36)
[2023-07-02] MEDS ORDERED: NEOSTIGMINE 5MG/5ML SYR IV ONE (13:37)
[2023-07-02] MEDS ORDERED: KETOROLAC 30MG VIAL (30MG/ML) ONE (13:38)
[2023-07-02] MEDS ORDERED: MEPERIDINE-PF 25 MG/ML SYG ONE ×2 (14:07→14:19)
[2023-07-02] MEDS: HYDROCODONE/ACETAMINOPHEN 5/325 MG TAB PO PRN (16:06)
[2023-07-02] MEDS: MAG/ALUM/SIMETH 30 ML UDCUP PO PRN (16:16)
[2023-07-02] MEDS ORDERED: TRAMADOL HCL 50 MG TABLET PO PRN (21:00)
[2023-07-02] MEDS: SIMETHICONE 80 MG TAB.CHEW PO SCH (21:13)
[2023-07-02] MEDS: IBUPROFEN 800 MG TAB PO SCH (21:14)
[2023-07-03] VITALS: BP 140/76; PULSE 78; RESP 18
[2023-07-03] MEDS ORDERED: HYDROXYZINE 10 MG TABLET PO SCH (01:00)
[2023-07-03] MEDS: LACTATED RINGERS 1000ML 1,000 ML IV SCH ×2 (02:56→12:36)
[2023-07-03] MEDS: FAMOTIDINE 20MG TAB PO SCH ×2 (08:11→09:00)
[2023-07-03] MEDS: ENOXAPARIN SODIUM 40 MG/0.4 ML SYRINGE SQ SCH (09:00)
[2023-07-03] MEDS: SIMETHICONE 80 MG TAB.CHEW PO SCH ×3 (09:00→21:00)
[2023-07-03] MEDS: IBUPROFEN 800 MG TAB PO SCH ×2 (13:00→21:00)
[2023-07-03] MEDS: ZOSYN 3.375GM+NS 50ML 50 ML IVPB SCH ×2 (13:00→21:00)
[2023-07-03 20:00] VITALS: BP 93/54; PULSE 134; RESP 22
[2023-07-04] VITALS (89 sets, daily range): BP systolic 92–141; BP diastolic 45–83; PULSE 82–118; RESP 15–29; O2SAT 95–100
[2023-07-04 00:35] LABS: ALBUMIN 3.3 g/dL (3.5-5.0); BILIRUBIN,TOTAL 0.9 mg/dL (0.2-1.0); POTASSIUM 4.3 mmol/L (3.5-5.1); TOTAL PROTEIN, SERUM 6.8 g/dL (6.0-8.3)
[2023-07-04] MEDS: LACTATED RINGERS 1000ML 1,000 ML IV SCH ×4 (04:00→21:09)
[2023-07-04] MEDS: ZOSYN 3.375GM+NS 50ML 50 ML IVPB SCH ×4 (05:00→21:09)
[2023-07-04] MEDS: IBUPROFEN 800 MG TAB PO SCH (05:00)
[2023-07-04] MEDS ORDERED: PROTAMINE SULFATE 10 MG/ML 25ML VIAL IV ONE (05:30)
[2023-07-04 05:57] LABS: MEAN CORPUSCULAR HEMOGLOBIN 26.6 pg (27.0-33.0); MEAN CORPUSCULAR HGB CONC 32.7 g/dL (32.0-36.0); MEAN CORPUSCULAR VOLUME 81.3 fL (79-99); RED BLOOD CELL COUNT(AUTO) 3.69 MIL/uL (4.50-6.20); WHITE BLOOD COUNT (AUTO) 8.7 K/uL (4.8-10.8)
[2023-07-04 05:58] LABS: RED CELL DISTRIBUTION WIDTH 14.1 % (11.0-15.5)
[2023-07-04] MEDS: SIMETHICONE 80 MG TAB.CHEW PO SCH ×3 (08:20→21:09)
[2023-07-04] MEDS: FAMOTIDINE 20MG TAB PO SCH (08:20)
[2023-07-04 08:57] LABS: ALBUMIN 2.6 g/dL (3.5-5.0); BILIRUBIN,TOTAL 0.6 mg/dL (0.2-1.0); CREATININE 1.1 mg/dL (0.5-1.5); POTASSIUM 3.9 mmol/L (3.5-5.1); TOTAL PROTEIN, SERUM 5.4 g/dL (6.0-8.3)
[2023-07-04 09:02] LABS: MEAN CORPUSCULAR HEMOGLOBIN 26.4 pg (27.0-33.0); MEAN CORPUSCULAR HGB CONC 32.3 g/dL (32.0-36.0); MEAN CORPUSCULAR VOLUME 81.6 fL (79-99); NUCLEATED RED BLOOD CELLS 0.2 % (0.0-0.19); RED BLOOD CELL COUNT(AUTO) 2.39 MIL/uL (4.50-6.20); RED CELL DISTRIBUTION WIDTH 14.4 % (11.0-15.5); WHITE BLOOD COUNT (AUTO) 9.4 K/uL (4.8-10.8)
[2023-07-04 09:07] LABS: HEMATOCRIT 19.5 % (42-54)
[2023-07-04 09:34] LABS: INR 1.01 (0.85-1.15); PROTHROMBIN TIME 11.7 SEC (9.6-11.6)
[2023-07-04 09:35] LABS: PARTIAL THROMBOPLASTIN TIME 27.1 SEC (26.3-35.5)
[2023-07-04 10:01] LABS: HEMATOCRIT 30.3 % (42-54)
[2023-07-04 10:42] LABS: HEMATOCRIT 20.8 % (42-54)
[2023-07-04] MEDS ORDERED: PANTOPRAZOLE 40 MG/VIAL IVP SCH (11:00)
[2023-07-04 14:05] LABS: MAGNESIUM 1.8 mg/dL (1.80-2.40); PHOSPHORUS 3.7 mg/dL (2.5-4.9)
[2023-07-04] MEDS ORDERED: COMPOUND IV REFRIGERATED 1 EACH IVSOLN MISC PRN (16:30)
[2023-07-04] MEDS ORDERED: COMPOUND IV MISC 1 EACH IVSOLN MISC PRN (16:30)
[2023-07-04] MEDS: OCTREOTIDE ACETATE 1,250 MCG in 0.9% NACL 250ML 250 ML IV SCH (17:35)
[2023-07-04] MEDS: PANTOPRAZOLE 40MG INJ 80 MG in 0.9%NACL 100ML 100 ML IVP SCH (17:35)
[2023-07-04 18:09] LABS: HEMATOCRIT 23.2 % (42-54)
[2023-07-04] MEDS: ARTIFICAL TEARS SOL 15 ML OU SCH (21:09)
[2023-07-04 21:38] LABS: HEMATOCRIT 24.2 % (42-54); MEAN CORPUSCULAR HEMOGLOBIN 28.1 pg (27.0-33.0); MEAN CORPUSCULAR HGB CONC 33.1 g/dL (32.0-36.0); MEAN CORPUSCULAR VOLUME 84.9 fL (79-99); RED BLOOD CELL COUNT(AUTO) 2.85 MIL/uL (4.50-6.20); WHITE BLOOD COUNT (AUTO) 8.9 K/uL (4.8-10.8)
[2023-07-05] VITALS (87 sets, daily range): BP systolic 106–148; BP diastolic 48–82; PULSE 61–108; RESP 8–27; O2SAT 90–95
[2023-07-05] MEDS: PANTOPRAZOLE 40MG INJ 80 MG in 0.9%NACL 100ML 100 ML IVP SCH ×3 (01:00→21:28)
[2023-07-05] MEDS: LACTATED RINGERS 1000ML 1,000 ML IV SCH ×3 (03:49→19:00)
[2023-07-05 04:05] LABS: HEMATOCRIT 23.3 % (42-54); MEAN CORPUSCULAR HEMOGLOBIN 27.6 pg (27.0-33.0); MEAN CORPUSCULAR HGB CONC 32.6 g/dL (32.0-36.0); MEAN CORPUSCULAR VOLUME 84.7 fL (79-99); RED BLOOD CELL COUNT(AUTO) 2.75 MIL/uL (4.50-6.20); RED CELL DISTRIBUTION WIDTH 14.7 % (11.0-15.5); WHITE BLOOD COUNT (AUTO) 8.6 K/uL (4.8-10.8)
[2023-07-05 04:21] LABS: CREATININE 0.9 mg/dL (0.5-1.5); MAGNESIUM 1.8 mg/dL (1.80-2.40)
[2023-07-05] MEDS: ZOSYN 3.375GM+NS 50ML 50 ML IVPB SCH ×3 (04:45→21:27)
[2023-07-05 08:49] LABS: HEMATOCRIT 23.5 % (42-54)
[2023-07-05] MEDS: SIMETHICONE 80 MG TAB.CHEW PO SCH ×3 (09:00→21:28)
[2023-07-05 09:13] LABS: ALBUMIN 2.8 g/dL (3.5-5.0); BILIRUBIN,DIRECT 0.2 mg/dL (0.0-0.3); BILIRUBIN,TOTAL 0.8 mg/dL (0.2-1.0); TOTAL PROTEIN, SERUM 5.4 g/dL (6.0-8.3)
[2023-07-05] MEDS ORDERED: GADOTERATE MEGLUMINE 10 MMOL/20 ML VIAL IV ONE (09:26)
[2023-07-05] MEDS: ARTIFICAL TEARS SOL 15 ML OU SCH ×4 (09:29→21:31)
[2023-07-05] MEDS ORDERED: SOLU-MEDROL 125MG VIAL IVP ONE (09:30)
[2023-07-05 09:42] LABS: CRP QUANTITATIVE 125.6 mg/L (0.00-9.0)
[2023-07-05 11:00] LABS: HEMOGLOBIN A1C 5.3 % (4.0-6.0)
[2023-07-05 11:27] LABS: THYROID STIMULATING HORMONE 0.28 uIU/mL (0.36-3.74)
[2023-07-05] MEDS ORDERED: ACETAZOLAMIDE SODIUM 500 MG VIAL IV ONE (14:30)
[2023-07-05] MEDS ORDERED: TIMOLOL MALEATE 0.5% 5 ML BOTTLE OP ONE (14:30)
[2023-07-05] MEDS ORDERED: PILOCARPINE HCL 2% 15 ML DROPS OP ONE (14:30)
[2023-07-05 15:24] LABS: HEMATOCRIT 26.1 % (42-54)
[2023-07-05 16:22] LABS: BASOPHILS # (AUTO) 0.06 K/uL (0.00-0.20); BASOPHILS % (AUTO) 0.5 % (0.0-5.0); HEMATOCRIT 23.2 % (42-54); IMMATURE GRANULOCYTE ABSOLUTE 0.07 K/uL (0-1); LYMPHOCYTES % (AUTO) 16.6 % (21.0-51.0); MEAN CORPUSCULAR HEMOGLOBIN 26.5 pg (27.0-33.0); MEAN CORPUSCULAR HGB CONC 33.2 g/dL (32.0-36.0); MEAN CORPUSCULAR VOLUME 79.7 fL (79-99); MONOCYTES # (AUTO) 0.8 K/uL (0.1-1.0); MONOCYTES % (AUTO) 6.8 % (3.0-13.0); NEUTROPHILS # (AUTO) 9.1 K/uL (1.8-7.7); NEUTROPHILS % (AUTO) 75.5 % (40.0-77.0); PLATELET COUNT (AUTO) 251 K/uL (130-400); RED BLOOD CELL COUNT(AUTO) 2.91 MIL/uL (4.50-6.20); RED CELL DISTRIBUTION WIDTH 14.1 % (11.0-15.5)
[2023-07-05 16:38] LABS: PHOSPHORUS 4.3 mg/dL (2.5-4.9); POTASSIUM 3.5 mmol/L (3.5-5.1)
[2023-07-05 16:39] LABS: ALBUMIN 2.6 g/dL (3.5-5.0); BILIRUBIN,TOTAL 0.8 mg/dL (0.2-1.0); MAGNESIUM 1.5 mg/dL (1.80-2.40); TOTAL PROTEIN, SERUM 5.2 g/dL (6.0-8.3)
[2023-07-05] MEDS ORDERED: BRIM5DRO2 OP (18:35)
[2023-07-05] MEDS ORDERED: LATANOPROST 2.5 ML DROPS OS SCH (21:00)
[2023-07-05] MEDS ORDERED: PHARMACY COMMUNICATION MISC SCH (21:00)
[2023-07-05] MEDS: TIMOLOL MALEATE 0.5% 5 ML BOTTLE OS SCH (21:28)
[2023-07-05] MEDS: OCTREOTIDE ACETATE 1,250 MCG in 0.9% NACL 250ML 250 ML IV SCH (21:28)
[2023-07-05] MEDS: BRIMONIDINE TARTRATE 0.2% 5 ML BOTTLE OS SCH (21:28)
[2023-07-05] MEDS ORDERED: SODIUM CHLORIDE 3% FOR INHALATION 4 ML/AMP VIAL.NEB IH ONE (23:20)
[2023-07-06] VITALS (48 sets, daily range): BP systolic 103–134; BP diastolic 53–75; PULSE 47–96; RESP 10–24; O2SAT 89–95
[2023-07-06] MEDS: LACTATED RINGERS 1000ML 1,000 ML IV SCH (04:05)
[2023-07-06] MEDS: ZOSYN 3.375GM+NS 50ML 50 ML IVPB SCH ×3 (04:05→21:42)
[2023-07-06 04:35] LABS: HEMATOCRIT 23.2 % (42-54); MEAN CORPUSCULAR HEMOGLOBIN 27.9 pg (27.0-33.0); MEAN CORPUSCULAR HGB CONC 32.8 g/dL (32.0-36.0); MEAN CORPUSCULAR VOLUME 85.3 fL (79-99); RED BLOOD CELL COUNT(AUTO) 2.72 MIL/uL (4.50-6.20); RED CELL DISTRIBUTION WIDTH 14.8 % (11.0-15.5)
[2023-07-06 05:35] LABS: ALBUMIN 2.8 g/dL (3.5-5.0); BILIRUBIN,DIRECT 0.2 mg/dL (0.0-0.3); BILIRUBIN,TOTAL 0.6 mg/dL (0.2-1.0); CREATININE 0.8 mg/dL (0.5-1.5); MAGNESIUM 2.1 mg/dL (1.80-2.40); TOTAL PROTEIN, SERUM 6.3 g/dL (6.0-8.3)
[2023-07-06] MEDS ORDERED: SODIUM CHLORIDE 3% FOR INHALATION 4 ML/AMP VIAL.NEB IH ONE (06:12)
[2023-07-06] MEDS: PANTOPRAZOLE 40MG INJ 80 MG in 0.9%NACL 100ML 100 ML IVP SCH (07:30)
[2023-07-06] MEDS: ARTIFICAL TEARS SOL 15 ML OU SCH ×4 (07:48→21:48)
[2023-07-06] MEDS: TIMOLOL MALEATE 0.5% 5 ML BOTTLE OS SCH ×2 (07:48→21:48)
[2023-07-06] MEDS: BRIMONIDINE TARTRATE 0.2% 5 ML BOTTLE OS SCH ×3 (07:48→21:49)
[2023-07-06] MEDS: SIMETHICONE 80 MG TAB.CHEW PO SCH ×3 (08:18→21:42)
[2023-07-06] MEDS ORDERED: ACETAZOLAMIDE SODIUM 500 MG VIAL IV SCH ×2 (15:00→15:45)
[2023-07-06] MEDS ORDERED: MANNITOL 20% IV ONE (15:00)
[2023-07-06] MEDS: AcetaZOLAMIDE 250 MG TAB PO SCH ×2 (19:14→21:42)
[2023-07-06] MEDS: LATANOPROST 2.5 ML DROPS OS SCH (21:48)
[2023-07-07] VITALS (15 sets, daily range): BP systolic 105–120; BP diastolic 52–63; PULSE 56–82; RESP 14–19; O2SAT 96–99
[2023-07-07 04:00] LABS: BASOPHILS # (AUTO) 0.08 K/uL (0.00-0.20); BASOPHILS % (AUTO) 0.8 % (0.0-5.0); EOSINOPHILS # (AUTO) 0.13 K/uL (0.00-0.70); EOSINOPHILS % (AUTO) 1.2 % (0.0-8.0); HEMATOCRIT 24.7 % (42-54); IMMATURE GRANULOCYTE ABSOLUTE 0.07 K/uL (0-1); LYMPHOCYTES # (AUTO) 3.1 K/uL (1.0-4.8); LYMPHOCYTES % (AUTO) 28.8 % (21.0-51.0); MEAN CORPUSCULAR HEMOGLOBIN 28.5 pg (27.0-33.0); MEAN CORPUSCULAR HGB CONC 32.8 g/dL (32.0-36.0); MONOCYTES % (AUTO) 8.9 % (3.0-13.0); NEUTROPHILS # (AUTO) 6.3 K/uL (1.8-7.7); NEUTROPHILS % (AUTO) 59.6 % (40.0-77.0); PLATELET COUNT (AUTO) 348 K/uL (130-400); RED BLOOD CELL COUNT(AUTO) 2.84 MIL/uL (4.50-6.20); WHITE BLOOD COUNT (AUTO) 10.6 K/uL (4.8-10.8)
[2023-07-07 04:13] LABS: ALBUMIN 2.9 g/dL (3.5-5.0); BILIRUBIN,TOTAL 0.8 mg/dL (0.2-1.0); MAGNESIUM 2.2 mg/dL (1.80-2.40); POTASSIUM 3.7 mmol/L (3.5-5.1); TOTAL PROTEIN, SERUM 6.3 g/dL (6.0-8.3)
[2023-07-07] MEDS: ZOSYN 3.375GM+NS 50ML 50 ML IVPB SCH ×4 (04:55→20:38)
[2023-07-07] MEDS: SIMETHICONE 80 MG TAB.CHEW PO SCH ×4 (09:43→20:38)
[2023-07-07] MEDS: AcetaZOLAMIDE 250 MG TAB PO SCH ×5 (09:43→20:38)
[2023-07-07] MEDS: BRIMONIDINE TARTRATE 0.2% 5 ML BOTTLE OS SCH ×3 (09:58→20:36)
[2023-07-07] MEDS: TIMOLOL MALEATE 0.5% 5 ML BOTTLE OS SCH ×2 (09:59→20:37)
[2023-07-07] MEDS: ARTIFICAL TEARS SOL 15 ML OU SCH ×4 (10:00→20:37)
[2023-07-07] MEDS: LATANOPROST 2.5 ML DROPS OS SCH (20:37)
[2023-07-08 04:18] VITALS: BP 111/61; PULSE 83; RESP 20
[2023-07-08 05:16] LABS: HEMATOCRIT 26.2 % (42-54); MEAN CORPUSCULAR HEMOGLOBIN 27.4 pg (27.0-33.0); MEAN CORPUSCULAR HGB CONC 32.4 g/dL (32.0-36.0); MEAN CORPUSCULAR VOLUME 84.5 fL (79-99); RED BLOOD CELL COUNT(AUTO) 3.1 MIL/uL (4.50-6.20); RED CELL DISTRIBUTION WIDTH 15.3 % (11.0-15.5); WHITE BLOOD COUNT (AUTO) 10.4 K/uL (4.8-10.8)
[2023-07-08 05:35] LABS: ALBUMIN 2.9 g/dL (3.5-5.0); BILIRUBIN,TOTAL 1.2 mg/dL (0.2-1.0); MAGNESIUM 2.1 mg/dL (1.80-2.40); POTASSIUM 3.9 mmol/L (3.5-5.1); TOTAL PROTEIN, SERUM 6.6 g/dL (6.0-8.3)
[2023-07-08 07:00] VITALS: BP 113/67; PULSE 73; RESP 20
[2023-07-08 08:00] VITALS: O2SAT 99
[2023-07-08 15:14] LABS: ATYPICAL P-ANCA AB <1:20 titer (Neg:<1:20); CYTOPLASMIC (C-ANCA) AB, IGG <1:20 titer (Neg:<1:20)
== END 2023-07-08 10:20 | disposition home or self-care (01) | DRG 418 ==
LOC: EDH 09:45 → EDHIP 17:34 → EEVIPCON 17:34 → 4AH 23:45 → 2CV 07-04 00:38 → 2BH 07-04 01:51 → 2AH 07-07 06:57
PROVIDERS: ADMIT Internal Medicine; ATTEND Internal Medicine
PROC: 0FC98ZZ Extirpation of Matter from Common Bile Duct, Via Natural or Artificial Opening Endoscopic (ICD-10-PCS; 2023-06-30)
PROC: BF131ZZ Fluoroscopy of Gallbladder and Bile Ducts using Low Osmolar Contrast (ICD-10-PCS; 2023-06-30)
PROC: 8E0W4CZ Robotic Assisted Procedure of Trunk Region, Percutaneous Endoscopic Approach (ICD-10-PCS; 2023-07-02)
PROC: 0FT44ZZ Resection of Gallbladder, Percutaneous Endoscopic Approach (ICD-10-PCS; principal; 2023-07-02 12:35)
PROC: 30233N1 Transfusion of Nonautologous Red Blood Cells into Peripheral Vein, Percutaneous Approach (ICD-10-PCS; 2023-07-04)
DX: K80.62 Calculus of gallbladder and bile duct with acute cholecystitis without obstruction (principal); D62 Acute posthemorrhagic anemia; Z20.822 Contact with and (suspected) exposure to COVID-19; I95.9 Hypotension, unspecified; E86.1 Hypovolemia; E66.09 Other obesity due to excess calories; Z68.30 Body mass index [BMI] 30.0-30.9, adult
CPT/HCPCS: 36415; 43262; 43264; 70450; 70544; 70549; 70553; 71045; 74176; 74181; 74328; 74330; 76705; 80048; 80053; 80076; 82550; 82607; 82803; 82948; 83036; 83516; 83605; 83690; 83735; 83874; 84100; 84145; 84238; 84443; 85014; 85018; 85025; 85027; 85610; 85651; 85730; 86038; 86140; 86215; 86235; 86255; 86431; 86850; 86900; 86901; 86923; 87071; 87205; 87426; 87635; 88304; 93971; 94640; 97039; A4606; C1769; C1773; C9113; G0378; J0330; J1100; J1120; J1170; J1650; J1885; J2001; J2175; J2250; J2270; J2354; J2405; J2543; J2704; J2710; J2720; J2930; J3010; J3490; J7030; J7050; J7120; P9016; Q9967; A4215; A4216; A4222; A4223; A4649; A4657; A7002; A9575; G0168; G8980-CI; G8983-CI; S8037

== ENCOUNTER 2023-07-16 18:42 | Emergency (ER) | payer OTHER ==
[~2023-07-16] VITALS: Ht 177.8 cm; Wt 91.6 kg
[2023-07-16 20:18] LABS: BASOPHILS # (AUTO) 0.07 K/uL (0.00-0.20); BASOPHILS % (AUTO) 0.7 % (0.0-5.0); EOSINOPHILS % (AUTO) 2.1 % (0.0-8.0); HEMATOCRIT 33.1 % (42-54); IMMATURE GRANULOCYTE ABSOLUTE 0.12 K/uL (0-1); LYMPHOCYTES # (AUTO) 2.3 K/uL (1.0-4.8); LYMPHOCYTES % (AUTO) 24.2 % (21.0-51.0); MEAN CORPUSCULAR HEMOGLOBIN 26.5 pg (27.0-33.0); MEAN CORPUSCULAR VOLUME 82.8 fL (79-99); MONOCYTES # (AUTO) 0.8 K/uL (0.1-1.0); MONOCYTES % (AUTO) 8.2 % (3.0-13.0); NEUTROPHILS % (AUTO) 63.5 % (40.0-77.0); PLATELET COUNT (AUTO) 605 K/uL (130-400); RED CELL DISTRIBUTION WIDTH 14.9 % (11.0-15.5); WHITE BLOOD COUNT (AUTO) 9.4 K/uL (4.8-10.8)
[2023-07-16 20:26] LABS: POTASSIUM 3.7 mmol/L (3.5-5.1)
[2023-07-16] MEDS ORDERED: LATANOPROST 2.5 ML DROPS OD ONE (20:30)
[2023-07-16] MEDS ORDERED: TIMOLOL MALEATE 0.5% 5 ML BOTTLE OD SCH (20:30)
[2023-07-16 20:31] LABS: ALBUMIN 3.7 g/dL (3.5-5.0); BILIRUBIN,TOTAL 1.1 mg/dL (0.2-1.0); TOTAL PROTEIN, SERUM 8.4 g/dL (6.0-8.3)
[2023-07-16 22:33] VITALS: BP 112/57; PULSE 77; RESP 16; O2SAT 99
== END 2023-07-16 23:02 | disposition home or self-care (01) ==
LOC: EDH 18:42
DX: H53.8 Other visual disturbances (principal); H57.11 Ocular pain, right eye; Z90.49 Acquired absence of other specified parts of digestive tract; Z98.890 Other specified postprocedural states
CPT/HCPCS: 36415; 80053; 85025

== ENCOUNTER 2023-07-22 17:23 | Emergency (ER) | payer OTHER ==
[~2023-07-22] VITALS: Ht 180.3 cm; Wt 91.2 kg
[2023-07-23 00:38] LABS: BASOPHILS # (AUTO) 0.09 K/uL (0.00-0.20); BASOPHILS % (AUTO) 1.1 % (0.0-5.0); EOSINOPHILS # (AUTO) 0.34 K/uL (0.00-0.70); EOSINOPHILS % (AUTO) 4.2 % (0.0-8.0); HEMATOCRIT 31.9 % (42-54); IMMATURE GRANULOCYTE ABSOLUTE 0.06 K/uL (0-1); LYMPHOCYTES % (AUTO) 36.5 % (21.0-51.0); MEAN CORPUSCULAR HEMOGLOBIN 26.4 pg (27.0-33.0); MEAN CORPUSCULAR HGB CONC 31.7 g/dL (32.0-36.0); MEAN CORPUSCULAR VOLUME 83.5 fL (79-99); MONOCYTES # (AUTO) 0.7 K/uL (0.1-1.0); MONOCYTES % (AUTO) 8.5 % (3.0-13.0); PLATELET COUNT (AUTO) 473 K/uL (130-400); RED BLOOD CELL COUNT(AUTO) 3.82 MIL/uL (4.50-6.20); RED CELL DISTRIBUTION WIDTH 15.1 % (11.0-15.5); WHITE BLOOD COUNT (AUTO) 8.1 K/uL (4.8-10.8)
[2023-07-23 00:51] LABS: CREATININE 0.8 mg/dL (0.5-1.5); POTASSIUM 3.8 mmol/L (3.5-5.1)
[2023-07-23 00:56] LABS: ALBUMIN 3.6 g/dL (3.5-5.0); BILIRUBIN,TOTAL 0.7 mg/dL (0.2-1.0); TOTAL PROTEIN, SERUM 7.8 g/dL (6.0-8.3)
[2023-07-23 01:23] VITALS: BP 102/58; PULSE 69; RESP 16; O2SAT 100
== END 2023-07-23 02:04 | disposition home or self-care (01) ==
LOC: EDH 17:23
DX: M79.661 Pain in right lower leg (principal); M79.89 Other specified soft tissue disorders; H40.9 Unspecified glaucoma; Z90.49 Acquired absence of other specified parts of digestive tract; Z98.890 Other specified postprocedural states
CPT/HCPCS: 36415; 80053; 85025; 85378; 93971

== ENCOUNTER 2023-09-22 19:40 | Emergency (ER) | payer OTHER ==
[~2023-09-22] VITALS: Ht 175.3 cm; Wt 90.7 kg
[2023-09-22] MEDS ORDERED: HYDROXYZINE 50MG VIAL 50 MG/ML VIAL IM SCH (21:00)
[2023-09-22] MEDS ORDERED: BUSP10TA3 PO (22:12)
[2023-09-22 22:51] VITALS: BP 124/76; PULSE 88; RESP 20
== END 2023-09-22 22:55 | disposition home or self-care (01) ==
LOC: EDH 19:40
DX: F41.9 Anxiety disorder, unspecified (principal); F32.A Depression, unspecified; H40.9 Unspecified glaucoma; Z90.49 Acquired absence of other specified parts of digestive tract; Z98.890 Other specified postprocedural states
CPT/HCPCS: 99283; 96372; J3410

== ENCOUNTER → 2024-02-10 | Outpatient (CLI) | payer OTHER ==
[~2024-02-10] MED LIST changes: +BUSP10TA3 PO; -FAMO20TA8 PO; -IBUP-1493 PO; -LORA10TA7 PO; -OMEP40CA21 PO; -ONDA-104 PO; -ONDA4TAB10 PO; -PRED5TAB PO
[2024-02-10 14:13] LABS: BASOPHILS # (AUTO) 0.05 K/uL (0.00-0.20); BASOPHILS % (AUTO) 0.8 % (0.0-5.0); EOSINOPHILS # (AUTO) 0.11 K/uL (0.00-0.70); EOSINOPHILS % (AUTO) 1.7 % (0.0-8.0); HEMATOCRIT 45.4 % (42-54); IMMATURE GRANULOCYTE ABSOLUTE 0.01 K/uL (0-1); LYMPHOCYTES # (AUTO) 3.2 K/uL (1.0-4.8); LYMPHOCYTES % (AUTO) 49.2 % (21.0-51.0); MEAN CORPUSCULAR HEMOGLOBIN 26.4 pg (27.0-33.0); MEAN CORPUSCULAR HGB CONC 32.8 g/dL (32.0-36.0); MEAN CORPUSCULAR VOLUME 80.4 fL (79-99); MONOCYTES # (AUTO) 0.4 K/uL (0.1-1.0); MONOCYTES % (AUTO) 5.9 % (3.0-13.0); NEUTROPHILS # (AUTO) 2.8 K/uL (1.8-7.7); NEUTROPHILS % (AUTO) 42.2 % (40.0-77.0); PLATELET COUNT (AUTO) 281 K/uL (130-400); RED BLOOD CELL COUNT(AUTO) 5.65 MIL/uL (4.50-6.20); RED CELL DISTRIBUTION WIDTH 13.6 % (11.0-15.5); WHITE BLOOD COUNT (AUTO) 6.5 K/uL (4.8-10.8)
[2024-02-10 14:51] LABS: ALBUMIN 4.4 g/dL (3.5-5.0); BILIRUBIN,TOTAL 0.5 mg/dL (0.2-1.0); CREATININE 0.9 mg/dL (0.5-1.3); POTASSIUM 3.9 mmol/L (3.5-5.1); THYROID STIMULATING HORMONE 1.58 uIU/mL (0.36-3.74); TOTAL PROTEIN, SERUM 8.2 g/dL (6.0-8.3)
[2024-02-11 14:47] LABS: HEPATITIS A IGM ANTIBODY Non-Reactive (Nonreactive); HEPATITIS B CORE IGM ANTIBODY Non-Reactive (Negative); HEPATITIS B SURFACE ANTIGEN Non-Reactive (Nonreactive); HEPATITIS C ANTIBODY Non-Reactive (Nonreactive)
== END | disposition home or self-care (01) ==
LOC: LAB 13:38
PROVIDERS: ATTEND Family Medicine
DX: D50.0 Iron deficiency anemia secondary to blood loss (chronic) (principal); F41.1 Generalized anxiety disorder; H40.033 Anatomical narrow angle, bilateral
CPT/HCPCS: 36415; 80053; 80074; 82306; 82607; 82728; 82746; 83540; 83550; 84443; 85025

== ENCOUNTER → 2024-05-18 | Outpatient (CLI) | payer OTHER ==
[2024-05-18 12:06] LABS: BASOPHILS # (AUTO) 0.06 K/uL (0.00-0.20); BASOPHILS % (AUTO) 0.7 % (0.0-5.0); EOSINOPHILS # (AUTO) 0.15 K/uL (0.00-0.70); EOSINOPHILS % (AUTO) 1.9 % (0.0-8.0); IMMATURE GRANULOCYTE ABSOLUTE 0.03 K/uL (0-1); LYMPHOCYTES # (AUTO) 3.4 K/uL (1.0-4.8); LYMPHOCYTES % (AUTO) 42.6 % (21.0-51.0); MEAN CORPUSCULAR HEMOGLOBIN 26.1 pg (27.0-33.0); MEAN CORPUSCULAR HGB CONC 32.7 g/dL (32.0-36.0); MEAN CORPUSCULAR VOLUME 79.7 fL (79-99); MONOCYTES # (AUTO) 0.5 K/uL (0.1-1.0); MONOCYTES % (AUTO) 6.2 % (3.0-13.0); NEUTROPHILS # (AUTO) 3.9 K/uL (1.8-7.7); NEUTROPHILS % (AUTO) 48.2 % (40.0-77.0); PLATELET COUNT (AUTO) 283 K/uL (130-400); RED BLOOD CELL COUNT(AUTO) 5.52 MIL/uL (4.50-6.20); RED CELL DISTRIBUTION WIDTH 13.1 % (11.0-15.5)
[2024-05-18 13:01] LABS: ALBUMIN 4.2 g/dL (3.5-5.0); BILIRUBIN,TOTAL 0.5 mg/dL (0.2-1.0); CREATININE 0.8 mg/dL (0.5-1.3); POTASSIUM 4.7 mmol/L (3.5-5.1); THYROID STIMULATING HORMONE 1.31 uIU/mL (0.36-3.74)
== END | disposition home or self-care (01) ==
LOC: LAB 11:40
PROVIDERS: ATTEND Internal Medicine Nephrology
DX: R53.83 Other fatigue (principal); R94.5 Abnormal results of liver function studies; R42 Dizziness and giddiness; I95.1 Orthostatic hypotension
CPT/HCPCS: 36415; 80053; 84443; 85025

== ENCOUNTER → 2024-06-12 | Outpatient (CLI) | payer OTHER | END | disposition home or self-care (01) | LOC: RAH 11:07 | PROVIDERS: ATTEND Internal Medicine Nephrology | DX: K40.90 Unilateral inguinal hernia, without obstruction or gangrene, not specified as recurrent (principal); R19.09 Other intra-abdominal and pelvic swelling, mass and lump; R22.9 Localized swelling, mass and lump, unspecified | CPT/HCPCS: 76856; 76882 ==

== ENCOUNTER → 2024-08-09 | Outpatient (CLI) | payer OTHER ==
[2024-08-09 09:00] LABS: CHOLESTEROL 174 mg/dL (<200); HDL CHOLESTEROL 50 mg/dL (29-71); LDL DIRECT 101 mg/dL (0-99); TRIGLYCERIDES 151 mg/dL (30-200)
== END | disposition home or self-care (01) ==
LOC: LAB 08:04
PROVIDERS: ATTEND Internal Medicine Nephrology
DX: Z13.220 Encounter for screening for lipoid disorders (principal)
CPT/HCPCS: 36415; 80061; 83013

== ENCOUNTER → 2024-10-12 | Outpatient (CLI) | payer OTHER ==
[2024-10-12 09:20] LABS: BASOPHILS # (AUTO) 0.06 K/uL (0.00-0.20); BASOPHILS % (AUTO) 0.9 % (0.0-5.0); EOSINOPHILS # (AUTO) 0.18 K/uL (0.00-0.70); EOSINOPHILS % (AUTO) 2.7 % (0.0-8.0); HEMATOCRIT 45.3 % (42-54); IMMATURE GRANULOCYTE ABSOLUTE 0.03 K/uL (0-1); LYMPHOCYTES # (AUTO) 3.2 K/uL (1.0-4.8); LYMPHOCYTES % (AUTO) 47.7 % (21.0-51.0); MEAN CORPUSCULAR HEMOGLOBIN 26.6 pg (27.0-33.0); MONOCYTES # (AUTO) 0.4 K/uL (0.1-1.0); MONOCYTES % (AUTO) 6.2 % (3.0-13.0); NEUTROPHILS # (AUTO) 2.8 K/uL (1.8-7.7); PLATELET COUNT (AUTO) 259 K/uL (130-400); RED BLOOD CELL COUNT(AUTO) 5.46 MIL/uL (4.50-6.20); RED CELL DISTRIBUTION WIDTH 13.3 % (11.0-15.5); WHITE BLOOD COUNT (AUTO) 6.6 K/uL (4.8-10.8)
[2024-10-12 09:36] LABS: INR 1.02 (0.85-1.15)
[2024-10-12 09:39] LABS: ALBUMIN 4.1 g/dL (3.5-5.0); BILIRUBIN,TOTAL 0.5 mg/dL (0.2-1.0); CREATININE 0.9 mg/dL (0.5-1.3); POTASSIUM 4.7 mmol/L (3.5-5.1); TOTAL PROTEIN, SERUM 7.8 g/dL (6.0-8.3)
== END | disposition home or self-care (01) ==
LOC: LAB 08:34
PROVIDERS: ATTEND Internal Medicine Nephrology
DX: I10 Essential (primary) hypertension (principal); R06.02 Shortness of breath
CPT/HCPCS: 36415; 80053; 85025; 85610

== ENCOUNTER → 2024-10-17 | Outpatient (CLI) | payer OTHER ==
--- NOTE | 2024-10-17 16:13 | HMCIMG ---
CHEST 2VWS REASON: Essential (primary) hypertension COMPARISON: None FINDINGS: Two views of the chest were obtained. Lungs are clear. Heart size is normal. There is no pulmonary vascular congestion. Mediastinum and bony thorax appear unremarkable. IMPRESSION: Normal two view chest x-ray.
== END | disposition home or self-care (01) ==
LOC: RAH 14:45
PROVIDERS: ATTEND Internal Medicine Nephrology
DX: I10 Essential (primary) hypertension (principal)
CPT/HCPCS: 71046

== ENCOUNTER 2024-10-25 07:08 | Day surgery (SDC) | payer OTHER ==
[2024-10-22 09:46] VITALS: BP 96/55; PULSE 50; RESP 18; TEMP 97.9
[2024-10-22 10:20] LABS: BASOPHILS # (AUTO) 0.07 K/uL (0.00-0.20); BASOPHILS % (AUTO) 1.2 % (0.0-5.0); EOSINOPHILS # (AUTO) 0.14 K/uL (0.00-0.70); EOSINOPHILS % (AUTO) 2.3 % (0.0-8.0); HEMATOCRIT 44.1 % (42-54); IMMATURE GRANULOCYTE ABSOLUTE 0.01 K/uL (0-1); LYMPHOCYTES # (AUTO) 2.8 K/uL (1.0-4.8); LYMPHOCYTES % (AUTO) 46.5 % (21.0-51.0); MEAN CORPUSCULAR HEMOGLOBIN 26.6 pg (27.0-33.0); MEAN CORPUSCULAR HGB CONC 32.4 g/dL (32.0-36.0); MONOCYTES # (AUTO) 0.4 K/uL (0.1-1.0); MONOCYTES % (AUTO) 6.9 % (3.0-13.0); NEUTROPHILS # (AUTO) 2.6 K/uL (1.8-7.7); NEUTROPHILS % (AUTO) 42.9 % (40.0-77.0); PLATELET COUNT (AUTO) 266 K/uL (130-400); RED BLOOD CELL COUNT(AUTO) 5.38 MIL/uL (4.50-6.20); RED CELL DISTRIBUTION WIDTH 13.2 % (11.0-15.5); WHITE BLOOD COUNT (AUTO) 6.1 K/uL (4.8-10.8)
[2024-10-22 10:33] LABS: CREATININE 0.9 mg/dL (0.5-1.3); POTASSIUM 4.2 mmol/L (3.5-5.1)
[~2024-10-25] VITALS: Ht 180.3 cm; Wt 99.0 kg
[2024-10-25] VITALS (13 sets, daily range): BP systolic 107–133; BP diastolic 63–79; PULSE 60–80; RESP 14–20; TEMP 97.5–97.8
[~2024-10-25 07:08] MED LIST changes: +BRIM5DRO5 OU; -BUSP10TA3 PO; +LATA2.5D14 OU; +NETA2.5D OU; +TIMO5SOL10 OU
[2024-10-25] MEDS: ceFAZolin SODIUM 2 GM VIAL ONE (07:41)
[2024-10-25] MEDS: LACTATED RINGERS 1000ML 1,000 ML IV ONE (07:42)
[2024-10-25] MEDS ORDERED: proPOFol 10 MG/ML 20ML VIAL IV ONE (07:59)
[2024-10-25] MEDS ORDERED: LIDOCAINE PF 100MG/5ML (2%) SYRINGE 5ML ONE (07:59)
[2024-10-25] MEDS ORDERED: rocuRONium bROMide 10MG/1ML 5ML VL ONE ×2 (07:59→09:03)
[2024-10-25] MEDS ORDERED: FENTanyl CITRate PF 50 MCG/1 ML 2ML VIAL ONE (07:59)
--- NOTE | 2024-10-25 08:11 | NUR ---
Patient remains somewhat anxious speaking of previous Leyda with complications 2022. Emotional support, education and explanation provided. All questions answered. Stated Acute Right angle Glaucoma as a post op complication. Dr. Wyman phone number placed onchart as a precaution. Anesthesia Provider, Janelle VERA fully updated. Eyes reddened bilaterally. Pupil to left 3 mm irregular with a keyhole appearance. Patient stated surgery with Dr. King which was unsuccessful. Stated "Blurry vision" Right pupil 3mm and sluggish. Stated "20/20 vision" Resting quietly at this time. with at bedside appearing supportive.
[2024-10-25 08:35] LABS: PROTHROMBIN TIME 10.8 SEC (9.6-11.6)
[2024-10-25 08:37] LABS: PARTIAL THROMBOPLASTIN TIME 28.8 SEC (26.3-35.5)
[2024-10-25] MEDS ORDERED: MIDAZOLAM HCL 1 MG/ML 2ML VIAL ONE (08:42)
[2024-10-25] MEDS ORDERED: GLYCOPYRROLATE 0.2 MG/ML 5 ML VIAL ONE (08:42)
[2024-10-25] MEDS ORDERED: acetaMINOPHEN 100 ML ONE (08:44)
[2024-10-25] MEDS ORDERED: FAMOTIDINE 20MG VIAL IV ONE (08:44)
[2024-10-25] MEDS ORDERED: SUGAMMADEX SODIUM 200 MG/2 ML VIAL IV ONE (09:09)
[2024-10-25] MEDS ORDERED: ePHEDrine SULFate 50 MG/ML AMPULE ONE (09:10)
[2024-10-25] MEDS ORDERED: dexaMETHasone SOD PHOSPHATE 10MG/ML 1ML VIAL ONE (09:16)
[2024-10-25] MEDS ORDERED: ondanSETRON 4MG INJ ONE (09:16)
[2024-10-25] MEDS ORDERED: BUPIvacaine HCL/EPINEPHrine/PF 0.25% 10ML VIAL IJ ONE (09:21)
[2024-10-25] MEDS ORDERED: DOCU-116 PO (10:03)
[2024-10-25] MEDS ORDERED: GABA-529 PO (10:03)
[2024-10-25] MEDS ORDERED: METH-662 PO (10:03)
[2024-10-25] MEDS ORDERED: TRAM100T34 PO (10:03)
--- NOTE | 2024-10-25 10:07 | OP ---
Operative Note: DATE OF PROCEDURE: 10/25/24 SURGEON: DIANNA DEL CASTILLO MD SHIP SUPERINTENDENT: [MADALYN Erazo] ANESTHESIA: [General endotracheal anesthesia] ANESTHESIOLOGIST/PREPARATION PLANT REPAIRER: [[facility] anesthesia team] PREOPERATIVE DIAGNOSIS: [Left inguinal hernia] POSTOPERATIVE DIAGNOSIS: [Same] SYNOPSIS: [Left inguinal hernia causing patient discomfort Laparoscopic left inguinal hernia repair with mesh Appropriate closure of hernia defect Healthy testicle at the end the case All sponges and instruments were accounted for at the end the case Patient tolerated the procedure well, there no complications] PROCEDURE: [Laparoscopic left inguinal hernia repair with mesh] ESTIMATED BLOOD LOSS: [Less than 10 cc] INDICATIONS: [Left inguinal hernia causing patient discomfort] DESCRIPTION OF PROCEDURE: [On day of surgery patient presented to the hospital. Patient was brought operating room. Preoperative antibiotics were given. Bilateral SCDs were placed. Patient was intubated. Patient was then prepped and draped in the usual fashion. Skin incision was made in the umbilicus. 5 mm trocars inserted under direct vision. Abdomen was insufflated 15 mmHg. No injury to omentum or bowel was noted. Then left 5 mm port was placed in the right lateral abdomen, 5 mm port placed in left lateral abdomen and the umbilical port was replaced with a 12 mm port. The peritoneum overlying the left hernia defect was open and the hernia sac was reduced. Attention was taken so as not to injure the cord structures. Then a piece of 3D max mesh was placed over the hernia defect and tacked to the pubic tubercle and the anterior abdominal wall. This was done with Endo universal tacking device. Then the peritoneum was closed over the mesh. Then Vistaseal tissue sealant was placed between the mesh and the peritoneum. Then the umbilical 12 mm port site was closed with a Jeffrey Emmanuel device and Ethibond suture. Then all insufflation gas was removed. Ports removed. Local anesthetic was instilled into the incisions and the incision was closed in subcuticular fashion and appropriate dressings were placed. Patient tolerated the procedure well, there is no complications. All sponges and instruments were accounted for at the end the case.] DIANNA DEL CASTILLO MD Oct 25, 2024 10:07
--- NOTE | 2024-10-25 11:42 | NUR ---
Remains stable post op. No evidence or c/o vision disturbance or bleeding. Full and complete Discharge Instructions given to Patient and Family both verbally and in writing.. All questions answered. Voiced understanding to Surgical precautions and Follow Up. PIV removed with catheter tip intact. Denies c/o pain or discomfort. Ambulated to Bathroom where voided large amount. D/C'd W/C to POV with Family to Home.
== END 2024-10-25 11:30 | disposition home or self-care (01) ==
LOC: DAH 07:08
PROVIDERS: ATTEND Surgery
DX: K40.90 Unilateral inguinal hernia, without obstruction or gangrene, not specified as recurrent (principal); Z90.49 Acquired absence of other specified parts of digestive tract; Z83.3 Family history of diabetes mellitus; Z79.899 Other long term (current) drug therapy; Z79.01 Long term (current) use of anticoagulants; Z80.8 Family history of malignant neoplasm of other organs or systems; Z98.890 Other specified postprocedural states
CPT/HCPCS: 80048; 85025; 36415 ×2; 49650; 85610; 85730; C1781; A4663; J7030; A4344; J7120; J3490 ×6; J3010; J1100; J2003; J2250; J2704; J2405; J0690; A4649 ×2; A4930; A4215; A4222; A4221; A4223 ×2; A4600

== ENCOUNTER 2024-10-28 14:18 | Emergency (ER) | payer OTHER ==
[~2024-10-28] VITALS: Ht 180.3 cm; Wt 98.9 kg
[~2024-10-28 14:18] MED LIST changes: +DOCU-116 PO; +GABA-529 PO; +METH-662 PO; +TRAM100T34 PO
--- NOTE | 2024-10-28 14:34 | ERN ---
General Chief Complaint: Post-Op Problem Stated Complaint: POST OP PROBLEM Time Seen by MD: 14:24 Source: patient, family History of Present Illness Initial Comments Patient is a 34-year-old male coming in to be evaluated for ecchymosis on surgical site. Per patient he recently had hernia repair laparoscopically and did not notice any bruising till today. Allergies: Coded Allergies: No Known Allergies (Unverified Allergy, Unknown, 04/01/19) No Known Drug Allergies (Unverified Allergy, Unknown, 04/01/19) Home Meds Active Scripts Methocarbamol (Robaxin) 750 Mg Tab, 500 MG PO TID, #15 TAB 0 Refills Prov:DIANNA DEL CASTILLO MD 10/25/24 Gabapentin (Gabapentin) 100 Mg Capsule, 100 MG PO TID, #15 CAP 0 Refills Prov:DIANNA DEL CASTILLO MD 10/25/24 Docusate Sodium (Colace) 100 Mg Capsule, 1 CAP PO BID for 15 Days, #30 CAP 0 Refills Prov:DIANNA DEL CASTILLO MD 10/25/24 Tramadol HCl (Tramadol HCl ER) 100 Mg Tab.er.24h, 50 MG PO TID PRN for PAIN, #28 TAB 0 Refills Prov:DIANNA DEL CASTILLO MD 10/25/24 Reported Medications Netarsudil Mesylate (Rhopressa) 0.02 % Drops, 1 DROP OU HS, DROP 10/22/24 Latanoprost (Latanoprost) 0.005 % Drops, 1 DROP OU HS, ML 0 Refills 10/22/24 Brimonidine Tartrate (Brimonidine Tartrate) 0.2 % Drops, 1 DROP OU BID, #10 ML 0 Refills 10/22/24 Timolol Maleate (Timolol Maleate) 0.5 % Rachael.gel, 1 DROP OU DAILY, #5 ML 0 Refills 10/22/24 Discontinued Scripts Buspirone HCl (Buspirone HCl) 10 Mg Tablet, 10 MG PO TID for 30 Days, #90 TAB Prov:AIDEN FULTON MD 09/22/23 Past Medical History Past Medical History: Glaucoma Medical History Other: GALL STONES, VISION ISSUES, GLAUCOMA Past Surgical History: Cholecystectomy, Other Surgical History Other: ABD SX, LT EYE SX, RT 5TH DIGIT SX Family History Family History: Negative Social History Social History: ETOH, Lives with family ROS Dictation CONSTITUTIONAL: No chills, no fever, no weakness, no diaphoresis, no malaise. HEAD/FACE: No signs of trauma. EENT: No eye pain, no blurred vision, no tearing, no double vision, no ear pain, no ear discharge, no nose pain, no nasal congestion, no throat pain, no throat swelling, no mouth pain. RESPIRATORY: No cough, no orthopnea, no SOB, no stridor, no wheezing. CARDIOVASCULAR: No chest pain, no edema, no palpitations, no syncope. GASTROINTESTINAL/ABDOMINAL: No abdominal pain, no constipation, no diarrhea, no nausea, no vomiting. GENITOURINARY: No abnormal discharge, no dysuria, no frequent urination, no hematuria. No complaints of pain in the genitals. MUSCULOSKELETAL: No back pain, no gout, no joint pain, no joint swelling, no muscle pain, no muscle stiffness, no neck pain. INTEGUMENTARY: No change in color, no change in hair/nails, no dryness, no lesion, no lumps, no rash. NEUROLOGICAL/PSYCH: No anxiety, not depressed, no emotional problem, no headache, no numbness, no pre-existing deficit, no history of seizures, no tremors, no weakness. HEMATOLOGIC/LYMPHATIC: Not anemic, no history of blood clots, no apparent bleeding, lower abd bruising, glands not swollen. All Systems Negative, Except as Noted. Physical Exam Physical Exam Dictation VITAL SIGNS: Reviewed. GENERAL APPEARANCE: Alert, oriented x3, no acute distress, obese. HEAD AND FACE: Non-traumatic. EYES: PERRL, pink conjunctivas, eyelid no trauma, anterior chamber clear. EARS: Pinnas intact and no signs of trauma or erythema. Ear canals clear and no discharge. TMs no erythema. NOSE: No discharge, no bleeding. OROPHARYNX: Mouth normal, teeth no caries, tongue pink. Pharynx clear, no erythema. Tonsils no exudates, no abscesses noted. Mucous membrane moist. NECK: Supple, non-tender, no thyromegaly, no masses, no JVD, no bruits. BREAST: Deferred. CHEST: No tenderness, no crepitus, no paradoxical movement, no retractions. LUNGS: Clear, well-ventilated, symmetric, no rales, no wheezing, no rhonchi, no stridor, good breath sounds bilaterally. HEART: Regular rate, regular rhythm, no murmur, no gallops. VASCULAR: No peripheral edema. ABDOMEN: Soft, positive bowel sounds, nondistended, no guarding, lower abdominal surgical site clean no drainage, ecchymosis present, no rebound, no masses no he patomegaly, no splenomegaly, no Remy's sign, no hernias. RECTAL: Deferred. GENITAL: Deferred. NEUROLOGICAL: Normal speech, gross motor function intact, gross sensory function intact. MUSCULOSKELETAL: Neck nontender, full range of motion, back nontender, full range of motion. EXTREMITIES: Nontender, full range of motion. SKIN: Color pink, dry, no turgor, no rash, no lacerations, no abrasions, no contusions. LYMPHATICS: Deferred. Results Laboratory and Microbiology Labs Reviewed?: Yes MDM MDM: Differential diagnosis: Post surgical evaluation, ecchymosis, wellness exam Patient is a 34-year-old male coming in to be evaluated for ecchymosis in the post surgical site. States that he started noticing ecchymosis which was not present for they after surgery. Patient does not complaining of abdominal pain nausea no vomiting no fever no chills. I advised him appropriate follow up with surgeon for further education on appropriate findings. Patient will be discharged in stable condition with a diagnosis of post surgical evaluation. ED Course Vital Signs Date Time Temp Pulse Resp B/P (MAP) Pulse Ox O2 Delivery O2 Flow Rate FiO2 10/28/24 14:20 98.6 60 16 123/73 99 Room Air DX & DISP Disposition: Discharge Departure Impression: Primary Impression: Encounter for evaluation of wound Additional Impression: Wellness examination Condition: Stable Additional Instructions: FOLLOW-UP WITH PRIMARY CARE PROVIDER IN 1 TO 2 DAYS. TAKE MEDICATIONS DIRECTED HERE IN THE EMERGENCY ROOM. OKAY TO CONTINUE HOME MEDICATIONS UNLESS OTHERWISE DISCUSSED DURING YOUR VISIT IN THE EMERGENCY ROOM TODAY. RETURN TO YOUR NEAREST EMERGENCY ROOM IF SYMPTOMS WORSEN OR IF THERE IS NO IMPROVEMENT. CALL 911 IF YOU NEED IMMEDIATE ASSISTANCE. TAKE TYLENOL [id number] NEEDED AND IF NO CONTRAINDICATIONS ARE PRESENT. INCREASE ORAL HYDRATION. A WOUND CULTURE OR URINE CULTURE WAS ORDERED HERE IN THE EMERGENCY ROOM DEPARTMENT PLEASE FOLLOW-UP WITH PRIMARY CARE PROVIDER AND ADVISE THEM TO GET REPEAT PORTS FROM OUR FACILITY. IF YOU HAD ANY JOSEU WRAP/SPLINTS THAT WERE APPLIED HERE, PLEASE DO NOT REMOVE THEM UNTIL YOU SEE YOUR PRIMARY CARE OR SPECIALTY. Referrals: Referrals: NAVEEN JERRY MD (PCP) DIANNA DEL CASTILLO MD Time of Disposition: 14:32 NANCY MARTINS MD Oct 28, 2024 14:34
--- NOTE | 2024-10-28 14:48 | NUR ---
PATIENT EDUCATED ON MONITORING FOR BLEEDING AND PAIN AT SURGICAL SITE. PATIENT DISCHARGED IN NO DISTRESS AT THIS TIME.
[2024-10-28 14:50] VITALS: BP 125/64; PULSE 62; RESP 20; TEMP 98.8; O2SAT 98
== END 2024-10-28 14:55 | disposition home or self-care (01) ==
LOC: EDH 14:18
DX: Z48.89 Encounter for other specified surgical aftercare (principal); Z79.899 Other long term (current) drug therapy; Z90.49 Acquired absence of other specified parts of digestive tract
CPT/HCPCS: 99282

== ENCOUNTER 2024-11-12 07:58 | Emergency (ER) | payer OTHER ==
[~2024-11-12] VITALS: Ht 180.3 cm; Wt 97.5 kg
--- NOTE | 2024-11-12 08:42 | ERN ---
ED Note History of Present Illness Stated Complaint: VOMITING, DIARRHEA Chief Complaint: Abdominal Pain Time Seen by MD: 09:26 Dictation: This is a 34-year-old male with a past medical history of glaucoma who came to the ED with the complaints of nonbilious vomiting, watery diarrhea, nausea since 5:30 a.m. in the morning. He states that he had around 3 episodes of of watery, brownish diarrhea and 3 episodes of nonbilious vomiting since morning. He denies recent travel history, headache, fever, dizziness, eye pain, difficulty in swallowing, sore throat, shortness of breath, chest pain, palpitations, abdominal pain, difficulty in urination or increased frequency of urination. Vitals temperature 98.8, blood pressure 115/69, pulse rate 72, respiratory rate 20, SpO2 98% on room air. Allergies: Coded Allergies: No Known Allergies (Unverified Allergy, Unknown, 04/01/19) No Known Drug Allergies (Unverified Allergy, Unknown, 04/01/19) Home Meds Active Scripts Ondansetron (Ondansetron Odt) 4 Mg Tab.rapdis, 1 TAB PO Q8HPRN PRN for nausea/vomiting for 4 Days, #12 TAB 0 Refills Prov:SANTOSH CALDERON MD 11/12/24 Lactobacillus Acidophilus (Acidophilus Lactobacilli) 500 Million Cell Capsule, 1 CAP PO DAILY for 7 Days, #7 CAP 0 Refills Prov:SANTOSH CALDERON MD 11/12/24 Pantoprazole Sodium (Protonix) 40 Mg Ectab, 1 TAB PO DAILY PRN for GASTRITIS for 30 Days, #30 TAB 0 Refills Prov:SANTOSH CALDERON MD 11/12/24 Methocarbamol (Robaxin) 750 Mg Tab, 500 MG PO TID, #15 TAB 0 Refills Prov:DIANNA DEL CASTILLO MD 10/25/24 Gabapentin (Gabapentin) 100 Mg Capsule, 100 MG PO TID, #15 CAP 0 Refills Prov:DIANNA DEL CASTILLO MD 10/25/24 Docusate Sodium (Colace) 100 Mg Capsule, 1 CAP PO BID for 15 Days, #30 CAP 0 Refills Prov:DIANNA DEL CASTILLO MD 10/25/24 Tramadol HCl (Tramadol HCl ER) 100 Mg Tab.er.24h, 50 MG PO TID PRN for PAIN, #28 TAB 0 Refills Prov:DIANNA DEL CASTILLO MD 10/25/24 Reported Medications Netarsudil Mesylate (Rhopressa) 0.02 % Drops, 1 DROP OU HS, DROP 10/22/24 Latanoprost (Latanoprost) 0.005 % Drops, 1 DROP OU HS, ML 0 Refills 10/22/24 Brimonidine Tartrate (Brimonidine Tartrate) 0.2 % Drops, 1 DROP OU BID, #10 ML 0 Refills 10/22/24 Timolol Maleate (Timolol Maleate) 0.5 % Rachael.gel, 1 DROP OU DAILY, #5 ML 0 Refills 10/22/24 Past Medical History Past Medical History: Glaucoma Additional Past Medical Hx: GALL STONES, VISION ISSUES, GLAUCOMA Surgical History: Cholecystectomy, Other Surgical History Other: HERNIA REPAIR Family History: Negative Social History: Lives with family Review of System Dictation Constitutional: No appetite loss, No fevers, No night sweats, No weakness, fatigue Neck: No swelling. pain or stiffness Respiratory: No cough, shortness of breath, wheezing Cardiovascular: No chest pain,, palpitations, dyspnea, No edema Gastrointestinal: No abdominal pain, nausea, vomiting, diarrhea, no constipation Genitourinary: No painful urination, No blood in urine, No urinary incontinence, No frequency or urgency Musculoskeletal: No joint pain, muscle pain, swelling or stiffness, Neurological: No numbness, tingling, No weakness, tremors or seizures Psychiatric: : No depression, No anxiety, No sleep disturbance, No Memory changes Initial Vital Sign VS Vital Signs Date Time Temp Pulse Resp B/P (MAP) Pulse Ox O2 Delivery O2 Flow Rate FiO2 11/12/24 07:58 98.8 72 20 115/69 98 Room Air 0 11/12/24 10:06 21 Physical Exam Dictation General: Alert & Oriented, No acute distress. EENT: conjunctival redness noted . Neck: Non-tender, No jugular vein distention, No lymphadenopathy, No thyromegaly, Supple. Respiratory: Lungs are clear to auscultation, Respirations are non-labored, Breath sounds are equal, Cardiovascular: Normal rate, Normal rhythm, No murmur, Good pulses equal in all extremities, Gastrointestinal: Soft, Non-tender, Non-distended, Normal bowel sounds, No organomegaly Musculoskeletal: No decreased range of motion, no decreased strength, no deformity and no abnormal gait Integumentary: Warm, Dry, Kake, Intact, No pallor, No rash. Neurologic: Alert, Oriented x4, Normal sensory, No focal defects Psychiatric: Cooperative, Appropriate mood & affect, Normal judgement, Non- suicidal. Results (Laboratory/Radiology) Laboratory/Radiology Laboratory Tests Test 11/12/24 08:53 11/12/24 09:04 Urine Color YELLOW (YELLOW) Urine Appearance CLEAR (CLEAR) Urine pH 5.0 (5.0-8.0) Urine Specific [place] 1.023 (1.001-1.031) Urine Protein NEGATIVE mg/dL (NEGATIVE) Urine Glucose (UA) NEGATIVE mg/dL (NEGATIVE) Urine Ketones NEGATIVE mg/dL (NEGATIVE) Urine Occult Blood NEGATIVE (NEGATIVE) Urine Nitrate NEGATIVE (NEGATIVE) Urine Bilirubin NEGATIVE mg/dL (NEGATIVE) Urine Urobilinogen 0.2 mg/dL (0.2-1.0) Urine Leukocyte Esterase NEGATIVE Susan/uL White Blood Count 10.1 K/uL (4.8-10.8) Red Blood Count 5.74 MIL/uL (4.50-6.20) Hemoglobin 15.2 g/dL (14.0-18.0) Hematocrit 47.0 % (42-54) Mean Corpuscular Volume 81.9 fL (79-99) Mean Corpuscular Hemoglobin 26.5 pg (27.0-33.0) L Mean Corpuscular Hemoglobin Concent 32.3 g/dL (32.0-36.0) Red Cell Distribution Width 13.3 % (11.0-15.5) Platelet Count 296 K/uL (130-400) Mean Platelet Volume 9.6 fL (7.5-10.5) Immature Granulocyte % (Auto) 0.4 % (0-1) Neutrophils (%) (Auto) 82.1 % (40.0-77.0) H Lymphocytes (%) (Auto) 10.1 % (21.0-51.0) L Monocytes (%) (Auto) 5.4 % (3.0-13.0) Eosinophils (%) (Auto) 1.5 % (0.0-8.0) Basophils (%) (Auto) 0.5 % (0.0-5.0) Neutrophils # (Auto) 8.3 K/uL (1.8-7.7) H Lymphocytes # (Auto) 1.0 K/uL (1.0-4.8) Monocytes # (Auto) 0.5 K/uL (0.1-1.0) Eosinophils # (Auto) 0.15 K/uL (0.00-0.70) Basophils # (Auto) 0.05 K/uL (0.00-0.20) Absolute Immature Granulocyte (auto 0.04 K/uL (0-1) Nucleated Red Blood Cells 0.0 % (0.0-0.19) Sodium Level 140 mmol/L (136-145) Potassium Level 4.4 mmol/L (3.5-5.1) Chloride Level 104 mmol/L (101-111) Carbon Dioxide Level 29 mmol/L (21-32) Blood Urea Nitrogen 15 mg/dL (7-18) Creatinine 0.9 mg/dL (0.5-1.3) Glomerular Filtration Rate Calc 114 mL/min (>90) Random Glucose 98 mg/dL (70-105) Total Calcium 9.2 mg/dL (8.5-10.1) Total Bilirubin 0.5 mg/dL (0.2-1.0) Aspartate Amino Transf (AST/SGOT) 23 U/L (10-37) Alanine Aminotransferase (ALT/SGPT) 58 U/L (12-78) Alkaline Phosphatase 100 U/L (50-136) Total Protein 8.4 g/dL (6.0-8.3) H Albumin 4.1 g/dL (3.5-5.0) Lipase 27 U/L (16-77) ED Course ED Course Orders Procedure Category Date Status Time Vital Signs Per CPOE 11/12/24 Transmitted Routine 08:04 Saline Lock Iv CPOE 11/12/24 Transmitted 08:04 Cbc With Differential LAB 11/12/24 Complete 08:04 Lipase LAB 11/12/24 Complete 08:04 Urinalysis Profile LAB 11/12/24 Complete 08:04 0.9%Nacl 1000ml (Ns PHA 11/12/24 Complete 1000ml) 08:30 Pantoprazole 40mg Inj PHA 11/12/24 Complete (Protonix 40mg Inj 08:30 Ondansetron 4mg Inj PHA 11/12/24 Complete (Zofran 4mg Inj) 08:30 Comprehensive LAB 11/12/24 Complete Metabolic Panel 08:04 Current Medications Medications (Trade) Dose Ordered Sig/Eliseo Route PRN Reason Start Time Stop Time Status Last Admin Dose Admin Ondansetron HCl (zoFRAN 4MG INJ) 4 mg ONCE ONCE IVP 11/12/24 08:30 11/12/24 08:36 DC 11/12/24 09:05 Pantoprazole Sodium (PROTonix 40MG INJ) 40 mg ONCE ONCE IVP 11/12/24 08:30 11/12/24 08:36 DC 11/12/24 09:04 Sodium Chloride 1,000 ml @ 0 mls/hr ONCE ONCE IV 11/12/24 08:30 11/12/24 08:36 DC 11/12/24 09:04 Vital Signs Date Time Temp Pulse Resp B/P (MAP) Pulse Ox O2 Delivery O2 Flow Rate FiO2 11/12/24 10:06 98.8 63 16 107/57 99 Room Air* 0 21 11/12/24 07:58 98.8 72 20 115/69 98 Room Air 0 Medical Decision Making MDM MDM Potential differential diagnoses include: Viral gastroenteritis Medication related causes Food-borne illness Irritable bowel syndrome Assessment: We will order CBC was done in order to to rule any anemia, infections and to liz luate the overall health of the patient. CMP was ordered in order to assess various electrolytes, kidney function, liver function ,protein levels and blood glucose levels, Will order 1 Liter of LR for adequate hydration, Protonix 40 mg IV, Zofran 4 mg IV for nausea. I will re-evaluate the patient after treatment and diagnostic exams have returned to determine whether they require further testing, can be safely discharged home, or need admission for further treatment and evaluation. Given the social determinants of health affecting care, including literacy, access to medical care, prescription drug management, and [id number] d rugs, I will ensure that treatment plans are tailored accordingly. Revaluation : Patient is alert awake and oriented. Clinically stable. His nausea, vomiting episodes have significantly improved. CBC, CMP, lipase, UA results are unremarkable. He states that he feels a lot better and has no other complaints. Disposition: Patient is being discharged home with oral prescriptions of lactobacillus probiotic for 7 days p.o., Zofran 4 mg q.8h p.r.n. for nausea, Protonix 40 mg p.o. daily for 30 days. Advised to Start with a bland diet Avoid spicy, fatty or sugary foods until symptoms improve Drink clear fluids to stay hydrated Avoid caffeine, alcohol or sugary sodas Monitor for symptoms like fever, severe persistent vomiting, diarrhea lasting more than 3 days or containing blood, signs of dehydration like dry mouth, dark urine, dizziness or fatigue and seek immediate medical attention in such scenario. DX & DISP Disposition: Discharge Departure Impression: Primary Impression: Viral gastroenteritis Critical Time: 30 minutes Condition: Stable Scripts Ondansetron (Ondansetron Odt) 4 Mg Tab.rapdis 1 TAB PO Q8HPRN PRN for nausea/vomiting for 4 Days, #12 TAB 0 Refills Prov: SANTOSH CALDERON MD 11/12/24 Lactobacillus Acidophilus (Acidophilus Lactobacilli) 500 Million Cell Capsule 1 CAP PO DAILY for 7 Days, #7 CAP 0 Refills Prov: SANTOSH CALDERON MD 11/12/24 Pantoprazole Sodium (Protonix) 40 Mg Ectab 1 TAB PO DAILY PRN for GASTRITIS for 30 Days, #30 TAB 0 Refills Prov: SANTOSH CALDERON MD 11/12/24 Referrals: NAVEEN JERRY MD (PCP) ATTESTATION BY PHYSICIAN I have seen and examined the patient. I reviewed the documentation, medical de cision making, and treatment plan as noted by the resident above. I agree with the findings and plan of care. SANTOSH RIVERS MD, MD Nov 12, 2024 08:42
[2024-11-12] MEDS: PANTOPrazole 40 MG/VIAL IVP ONE (09:04)
[2024-11-12] MEDS: 0.9%NACL 1000ML 1,000 ML IV ONE (09:04)
[2024-11-12] MEDS: ondanSETRON 4MG INJ IVP ONE (09:05)
[2024-11-12 09:18] LABS: BASOPHILS # (AUTO) 0.05 K/uL (0.00-0.20); BASOPHILS % (AUTO) 0.5 % (0.0-5.0); EOSINOPHILS # (AUTO) 0.15 K/uL (0.00-0.70); EOSINOPHILS % (AUTO) 1.5 % (0.0-8.0); IMMATURE GRANULOCYTE ABSOLUTE 0.04 K/uL (0-1); LYMPHOCYTES % (AUTO) 10.1 % (21.0-51.0); MEAN CORPUSCULAR HEMOGLOBIN 26.5 pg (27.0-33.0); MEAN CORPUSCULAR HGB CONC 32.3 g/dL (32.0-36.0); MEAN CORPUSCULAR VOLUME 81.9 fL (79-99); MONOCYTES # (AUTO) 0.5 K/uL (0.1-1.0); MONOCYTES % (AUTO) 5.4 % (3.0-13.0); NEUTROPHILS # (AUTO) 8.3 K/uL (1.8-7.7); NEUTROPHILS % (AUTO) 82.1 % (40.0-77.0); PLATELET COUNT (AUTO) 296 K/uL (130-400); RED BLOOD CELL COUNT(AUTO) 5.74 MIL/uL (4.50-6.20); RED CELL DISTRIBUTION WIDTH 13.3 % (11.0-15.5); WHITE BLOOD COUNT (AUTO) 10.1 K/uL (4.8-10.8)
[2024-11-12 09:28] LABS: APPEARANCE,URINE CLEAR (CLEAR); BILIRUBIN,URINE NEGATIVE (NEGATIVE); COLOR,URINE YELLOW (YELLOW); GLUCOSE, URINE (UA) NEGATIVE (NEGATIVE); KETONES,URINE NEGATIVE (NEGATIVE); LEUKOCYTE ESTERASE ,URINE NEGATIVE Leu/uL (NEGATIVE); NITRATE,URINE NEGATIVE (NEGATIVE); OCCULT BLOOD,URINE NEGATIVE (NEGATIVE); PROTEIN,URINE NEGATIVE (NEGATIVE); UROBILINOGEN,URINE 0.2 mg/dL (0.2-1.0)
[2024-11-12 09:29] LABS: CREATININE 0.9 mg/dL (0.5-1.3); POTASSIUM 4.4 mmol/L (3.5-5.1)
[2024-11-12 09:33] LABS: ADD UA MICROSCOPIC NO
[2024-11-12 09:33] LABS: ALBUMIN 4.1 g/dL (3.5-5.0); BILIRUBIN,TOTAL 0.5 mg/dL (0.2-1.0); TOTAL PROTEIN, SERUM 8.4 g/dL (6.0-8.3)
[2024-11-12] MEDS ORDERED: PANT40TA55 PO (09:55)
[2024-11-12] MEDS ORDERED: LACT1CAP90 PO (09:55)
[2024-11-12] MEDS ORDERED: ONDA-243 PO (09:59)
[2024-11-12 10:06] VITALS: BP 107/57; PULSE 63; RESP 16; TEMP 98.8; O2SAT 99
== END 2024-11-12 10:06 | disposition home or self-care (01) ==
LOC: EDH 07:58
DX: A08.4 Viral intestinal infection, unspecified (principal); Z79.899 Other long term (current) drug therapy; Z90.49 Acquired absence of other specified parts of digestive tract; Z98.890 Other specified postprocedural states
CPT/HCPCS: 99284; 96374; 96361; 96375; 80053; 83690; 85025; 81003; 36415; J7030; J2405; J2470

== ENCOUNTER → 2025-03-06 | Outpatient (CLI) | payer OTHER ==
[~2025-03-06] MED LIST changes: +LACT1CAP90 PO; +ONDA-243 PO; +PANT40TA55 PO
[2025-03-06 08:34] LABS: % IRON SATURATION 27.9 % (30-44)
== END | disposition home or self-care (01) ==
LOC: LAB 07:40
PROVIDERS: ATTEND Internal Medicine Nephrology
DX: E55.9 Vitamin D deficiency, unspecified (principal); I95.1 Orthostatic hypotension; R42 Dizziness and giddiness; R94.5 Abnormal results of liver function studies; E86.9 Volume depletion, unspecified
CPT/HCPCS: 36415; 82306; 82607; 83540; 83550